=== PATIENT | female | born 1950 | race Caucasian/White ===

== ENCOUNTER 2016-09-26 16:28 | Inpatient (IN) | payer MEDICARE ==
[~2016-09-26] VITALS: Ht 172.7 cm; Wt 117.0 kg
[2016-09-26] VITALS (23 sets, daily range): BP systolic 129–195; BP diastolic 72–108; PULSE 67–85; RESP 19–44; TEMP 97.2–97.9; O2SAT 95–98; Ht 172.7 cm; Wt 117.0 kg
--- OUTSIDE RECORDS SUMMARY | 2016-09-26 16:39 | XMS REPORT ---
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.19 Active Assessment Atrial fibrillation 427.31 Active Problem Thrombophlebitis 451.9 Active Problem Hypertension, Unspecified 401.9 Active Problem Atrial fibrillation 427.31 Active Problem Anti-common cold drugs causing adverse effect in therapeutic use E945.6 Active Problem Anticoagulants, Encounter for long-term (current) use V58.61 Active Problem Hyperlipidemia, Other and unspecified 272.4 Active Problem Diabetes mellitus without mention of complication, type II or unspecified type, not stated as uncontrolled 250.00 Active Medications No Known Medications Procedures Procedure Coding System Code Date ECHOCARDIOGRAPHY, TRANSTHORACIC, REAL-TIME WITH IMAGE DOCUMENTATION (2D), INCLUDES M-MODE RECORDING, WHEN PERFORMED, COMPLETE, WITH CPT-4 68342 Jun Results No Known Results Summary Purpose ReelGenie[employer]Works Submission
--- OUTSIDE RECORDS SUMMARY | 2016-09-26 16:39 | XMS REPORT ---
Author Author Donny Deleon [facility] eClinicalWorks Address Unknown Phone Unavailable Care Team Providers Care Technical Agronomist Name Role Phone Donny Deleon Unavailable Allergies No Known Allergies Problems Problem Type Condition Code Onset Dates Condition Status Assessment Hyperlipidemia, Other and unspecified 272.4 Active Problem Other pulmonary embolism and infarction 415.19 Active Assessment Diabetes mellitus without mention of complication, type II or unspecified type, not stated as uncontrolled 250.00 Active Problem Thrombophlebitis 451.9 Active Problem Hypertension, Unspecified 401.9 Active Problem Atrial fibrillation 427.31 Active Problem Anti-common cold drugs causing adverse effect in therapeutic use E945.6 Active Problem Anticoagulants, Encounter for long-term (current) use V58.61 Active Problem Hyperlipidemia, Other and unspecified 272.4 Active Problem Diabetes mellitus without mention of complication, type II or unspecified type, not stated as uncontrolled 250.00 Active Medications Medication Code System Code Instructions Start Date End Date Status Dosage Atorvastatin Calcium [facility] [address]-52 20 MG Orally Once a day October 29, 2014 1 tablet Invokana [facility] [address]-64 100 MG Orally Once a day October 29, 2014 1 tablet Results No Known Results Summary Purpose eClinicalWorks Submission
--- OUTSIDE RECORDS SUMMARY | 2016-09-26 16:39 | XMS REPORT ---
Author Author [place] - Organization Unknown Address Unknown Phone Unavailable Allergies, Adverse Reactions, Alerts * tramadol causes Eczema (rash). * Dilaudid causes Adverse Reaction. * Penicillins causes SWELLING. * No Latex Allergy. * No IV Contrast Allergy. * No Known Food Allergies. Problems * Diabetes Mellitus* Status:Active. * Pulmonary Embolism* Status:Active. Procedures No relevant procedures performed. Medication It is the responsibility of the patient or patient advertising account representative to confirm the list of medications with either the patient's personal care provider or the patient's follow-up care provider to ensure the patient has an appropriate list of medications to take at home. Discharge medications* citalopram 20 mg Tablet, Ordered By: Wei Ford Directions: 1 tablet oral daily * metFORMIN 500 mg Tablet, Ordered By: Wei Ford Directions: 1 tablet oral twice a day * gabapentin 300 mg Capsule, Ordered By: Wei Ford Directions: 1 capsule oral daily at bedtime * warfarin 7 mg Tablet, Ordered By: Wei Ford Directions: 1 tablet oral daily Additional Instructions: pt has been holding for procedure scheduled 02/18/13 * losartan 50 mg Tablet, Ordered By: Wei Ford Directions: 1 tablet oral twice a day * OTC glucosamine 1500mg; 1 tab oral twice daily; last taken at home 02/14/13 am * OTC Fish Oil 1200mg; 1 cap oral daily; last taken at home 02/11/13 (holding for procedure scheduled 02/18/13 * Multivitamin 50+ tablet; 1 tab oral daily; last taken at home 02/14/13 am * albuterol sulfate (ProAir HFA) 90 mcg HFA Aerosol Inhaler, Ordered By: Wei Ford Directions: 2 puff by inhalation every four hours PRN shortness of breath * HYDROcodone-acetaminophen 7.5 mg-500 mg Tablet, Ordered By: Wei Ford Directions: 1 tablet oral every four hours PRN MODERATE PAIN Stopped medications* None Results LAB--BEDSIDE TESTING from 02/15/2013 5:07 PMGlucose NPT 144 mg/dL H (70-100 mg/dL ) LAB--BEDSIDE TESTING from 02/15/2013 9:20 PMGlucose NPT 208 mg/dL H (70-100 mg/dL ) LAB--BEDSIDE TESTING from 02/16/2013 5:39 AMGlucose NPT 162 mg/dL H (70-100 mg/dL ) LAB--BEDSIDE TESTING from 02/16/2013 11:02 AMGlucose NPT 227 mg/dL H (70-100 mg/ dL) LAB--BEDSIDE TESTING from 02/16/2013 4:10 PMGlucose NPT 146 mg/dL H (70-100 mg/dL ) LAB--BEDSIDE TESTING from 02/16/2013 9:37 PMGlucose NPT 166 mg/dL H (70-100 mg/dL ) LAB--BEDSIDE TESTING from 02/17/2013 5:20 AMGlucose NPT 128 mg/dL H (70-100 mg/dL ) LAB--BEDSIDE TESTING from 02/17/2013 10:09 AMGlucose NPT 151 mg/dL H (70-100 mg/ dL) LAB--BEDSIDE TESTING from 02/17/2013 2:40 PMGlucose NPT 159 mg/dL H (70-100 mg/dL ) LAB--BEDSIDE TESTING from 02/17/2013 9:35 PMGlucose NPT 176 mg/dL H (70-100 mg/dL ) LAB--BEDSIDE TESTING from 02/18/2013 5:19 AMGlucose NPT 140 mg/dL H (70-100 mg/dL ) LAB--BEDSIDE TESTING from 02/18/2013 10:02 AMGlucose NPT 162 mg/dL H (70-100 mg/ dL) LAB--BEDSIDE TESTING from 02/18/2013 3:25 PMGlucose NPT 215 mg/dL H (70-100 mg/dL ) LAB--BEDSIDE TESTING from 02/18/2013 5:04 PMGlucose NPT 164 mg/dL H (70-100 mg/dL ) LAB--BEDSIDE TESTING from 02/18/2013 8:48 PMGlucose NPT 193 mg/dL H (70-100 mg/dL ) LAB--BEDSIDE TESTING from 02/19/2013 6:00 AMGlucose NPT 148 mg/dL H (70-100 mg/dL ) LAB--COAG STUDIES from 02/15/2013 12:05 PMPTT 53.4 sec H (25.0-35.0 sec) LAB--COAG STUDIES from 02/15/2013 7:41 PMPTT 96.2 sec H (25.0-35.0 sec) LAB--COAG STUDIES from 02/16/2013 5:55 AMINR 1.3 H (0.9-1.2 ) PTT 171.1 sec HH (25.0-35.0 sec) LAB--COAG STUDIES from 02/16/2013 2:53 PMPTT 68.6 sec H (25.0-35.0 sec) LAB--COAG STUDIES from 02/17/2013 6:05 AMINR 1.6 H (0.9-1.2 ) PTT 139.6 sec H (25.0-35.0 sec) LAB--COAG STUDIES from 02/17/2013 3:05 PMINR 1.5 H (0.9-1.2 ) PTT 64.7 sec H (25.0-35.0 sec) LAB--COAG STUDIES from 02/18/2013 6:03 AMINR 1.8 H (0.9-1.2 ) PTT 76.9 sec H (25.0-35.0 sec) LAB--COAG STUDIES from 02/19/2013 6:00 AMINR 1.9 H (0.9-1.2 ) PTT 61.8 sec H (25.0-35.0 sec) LAB--FLUID TESTING from 02/18/2013 8:49 AMOccult Blood, Stool Colorectal Neoplasm Screen Negative (Negative ) LAB--FLUID TESTING from 02/18/2013 4:30 PMOccult Blood, Stool Colorectal Neoplasm Screen Negative (Negative ) LAB--HEMATOLOGY from 02/18/2013 6:03 AMHCT 34.6 % L (37.0-47.0 %) HGB 10.9 g/dl L (12.0-16.0 g/dl) MCH 28.1 pg (27.0-32.0 pg) MCHC 31.5 g/dL L (32.0-36.0 g/dL) MCV 89.2 fL (82.0-99.0 fL) MPV 9.2 fL L (9.4-12.4 fL) Platelet Count 217 K/uL (150-400 K/uL) RBC 3.88 M/uL L (4.00-5.20 M/uL) RDW 15.0 % H (11.5-14.5 %) WBC 6.3 K/uL (4.8-10.8 K/uL)
--- OUTSIDE RECORDS SUMMARY | 2016-09-26 16:40 | XMS REPORT ---
Author Author Donny Deleon [facility] eClinicalWorks Address Unknown Phone Unavailable Care Team Providers Care Drafter Construction Name Role Phone Donny Deleon Unavailable Allergies No Known Allergies Problems Problem Type Condition ICD-9 Code Onset Dates Condition Status Problem Other pulmonary embolism and infarction 415.19 Active Problem Thrombophlebitis 451.9 Active Problem Hypertension, [...] uncontrolled 250.00 Active Medications No Known Medications Results No Known Results Summary Purpose eClinicalWorks Submission
--- OUTSIDE RECORDS SUMMARY | 2016-09-26 16:40 | XMS REPORT ---
Author Author Donny Deleon [facility] eClinicalWorks Address Unknown Phone Unavailable Care Team Providers Care Head Scorer Name Role Phone Donny Deleon Unavailable Allergies No Known Allergies Problems Problem Type Condition ICD-9 Code Onset Dates Condition Status Problem Other pulmonary embolism and infarction 415.19 Active Assessment Anticoagulants, Encounter for long-term (current) use V58.61 Active Problem Thrombophlebitis 451.9 Active Problem Hypertension, [...]
--- OUTSIDE RECORDS SUMMARY | 2016-09-26 16:40 | XMS REPORT ---
Author Author Donny Deleon [facility] eClinicalWorks Address Unknown Phone Unavailable Care Team Providers Care Ladle Cleaner Name Role Phone Donny Deleon Unavailable Allergies [...] Instructions Start Date End Date Status Dosage Tramadol HCl [facility] [id number] 50MG Active TAKE ONE TABLET BY MOUTH EVERY 6 HOURS NEEDED Results No Known Results Summary Purpose eClinicalWorks Submission
--- OUTSIDE RECORDS SUMMARY | 2016-09-26 16:40 | XMS REPORT ---
Author Author Donny Deleon [facility] eClinicalWorks Address Unknown Phone Unavailable Care Team Providers Care Tag Meter Operator Name Role Phone Donny Deleon Unavailable Allergies No Known Allergies Problems Problem Type Condition Code Onset Dates Condition Status Problem Other [...]
--- OUTSIDE RECORDS SUMMARY | 2016-09-26 16:40 | XMS REPORT ---
Author Author Donny Deleon [facility] eClinicalWorks Address Unknown Phone Unavailable Care Team Providers Care Shop Firer/Fireman Name Role Phone Donny Deleon CP Unavailable Allergies, Adverse Reactions, Alerts Substance Reaction Event Type penicillin Info Not Available Drug Allergy Tramadol HCl Info Not Available Drug Allergy Dilaudid Info Not Available Drug Allergy Problems Problem Type Condition ICD-9 Code Onset Dates Condition Status Assessment Anticoagulants, Encounter for long-term (current) use V58.61 Active Problem Other pulmonary embolism and infarction 415.19 Active Assessment Diabetes mellitus without mention of complication, type II or unspecified type, not stated as uncontrolled 250.00 Active Assessment Serum calcium elevated 275.42 Active Problem Thrombophlebitis 451.9 Active Problem Hypertension, [...] Instructions Start Date End Date Status Dosage Metoprolol Succinate ER [facility] [address]-55 100 MG Orally Once a day May 26, 2014 Active as directed Coumadin [facility] [address]-01 5 MG Orally Once a day or as directed Aug 03, 2011 Active 1.5 tabs Citalopram Hydrobromide [facility] 14750362617 20MG Active TAKE ONE TABLET BY MOUTH EVERY DAY Proventil HFA [facility] [address]-72 CFC FREE 90 MCG/INH INHALATION q 4hrs December 21, 2009 Active 1 (one) PUFF AEROSOL WITH ADAPTER q 4hrs Metformin HCl [facility] [address]-96 500 MG Orally Twice a day Active take one tablet by mouth twice daily Gabapentin [facility] [address]-68 300MG Active TAKE ONE CAPSULE BY MOUTH EVERY DAY Losartan Potassium [facility] [address]-33 50 MG Orally Once a day May 20, 2013 Active 1 tablet Klor-Con [facility] [address]-62 8 MEQ Orally Once a day Active TAKE ONE BY MOUTH EVERY DAY Triamterene-HCTZ [facility] [address]-24 37.5-25 MG Orally Once a day Aug 10, 2011 Active 1 tablet in the morning Coumadin [facility] [address]-90 1 MG Orally ONE TIME EACH DAY Active TAKE ONE TABLET BY MOUTH EVERY DAY Colchicine [facility] [address]-01 0.6 MG Orally Once a day Active 1 tablet Tramadol HCl [facility] [address]-68 50 MG Orally every 6 hrs Jun 11, 2014 Active 1 tablet as needed Procedures Procedure Coding System Code Date OFFICE VISITEST PT CPT-4 61030 Jun 25, 2014 PROTIME CPT-4 05967 Jun 25, 2014 Vital Signs Date/Time: Jun 25, 2014 Blood Pressure Systolic 121 mm Hg Height 67.5 in Weight 295.2 lbs BMI 45.55 Index Oximetry 97 % Cardiac Monitoring Heart Rate 92 /min Blood Pressure Diastolic 80 mm Hg Results Name Result Date Reference Range Unit PROTIME Summary Purpose eClinicalWorks Submission
--- OUTSIDE RECORDS SUMMARY | 2016-09-26 16:40 | XMS REPORT ---
Author Author Donny Deleon [facility] eClinicalWorks Address Unknown Phone Unavailable Care Team Providers Care Cyber Policy And Strategy Planner Name Role Phone Donny Deleon Unavailable Allergies [...] Date End Date Status Dosage Tramadol HCl [facility] [id number] 50MG Orally every 6 hrs PRN 1 TABLET Results No Known Results Summary Purpose eClinicalWorks Submission
--- OUTSIDE RECORDS SUMMARY | 2016-09-26 16:40 | XMS REPORT | Continuity of Care Document ---
Author Author [facility] Organization [facility] Address Unknown Phone Unavailable Allergies Active Description Code Type Severity Reaction Onset Reported/Identified Relationship to Patient Clinical Status Yes Penicillins Penicillins Drug Allergy Unknown N/A 04/21/2009 Yes Penicillins Drug Allergy N/A SWELLING 12/11/2009 Yes Dilaudid Drug Allergy N/A Adverse Reaction 03/13/2010 Yes tramadol Drug Allergy N/A Eczema (rash) 07/07/2011 Yes No Known Food Allergies Food Allergy N/A N/A 08/07/2013 Yes Hydromorphone Hydromorphone Drug Allergy Severe VOMITING 05/22/2014 Yes tramadol tramadol Drug Allergy Severe HIVE 05/22/2014 Yes Penicillins Penicillins Drug Allergy Unknown UNKNOWN 05/22/2014 Medications Problems Date Dx Coded Attending Type Code Diagnosis Diagnosed By 02/15/2013 Wei Ford MD Final 250.00 DM2/NOS UNCOMP NSU 02/15/2013 Wei Ford MD Final 272.4 HYPERLIPIDEMIA NEC NOS 02/15/2013 Wei Ford MD Final 278.00 OBESITY NOS 02/15/2013 Wei Ford MD Final 285.9 ANEMIA NOS 02/15/2013 Wei Ford MD Final 311 DEPRESSIVE DISORDER NEC 02/15/2013 Wei Ford MD Final 401.9 HYPERTENSION NOS 02/15/2013 Wei Ford MD Final 415.19 PULMON EMBOL/INFARCT NEC 02/15/2013 Wei Ford MD Final V85.42 BMI 45.0-49.9 ADULT 05/02/2013 Kapil Owusu MD Final 250.00 DM2/NOS UNCOMP NSU 05/02/2013 Kapil Owusu MD Final 272.4 HYPERLIPIDEMIA NEC NOS 05/02/2013 Kapil Owusu MD Final 278.01 MORBID OBESITY 05/02/2013 Kapil Owusu MD Final 401.9 HYPERTENSION NOS 05/02/2013 Kapil Owusu MD Final 729.5 PAIN IN LIMB 05/02/2013 Kapil Owusu MD Final 785.1 PALPITATIONS 05/02/2013 Kapil Owusu MD Final 786.09 RESP ABNORMALITY NEC 05/02/2013 Kapil Owusu MD Admitting 786.50 CHEST PAIN NOS 05/02/2013 Kapil Owusu MD Final 786.52 PAINFUL RESPIRATION 05/02/2013 Kapil Owusu MD Final V12.51 HX YVETTE THROMBUS/EMBOLISM 05/02/2013 Kapil Owusu MD Final V12.55 HX PULMONARY EMBOLISM 05/02/2013 Kapil Owusu MD Final V85.42 BMI 45.0-49.9 ADULT 08/07/2013November Torres JOHNSON Final 250.00 DM2/NOS UNCOMP NSU 08/07/2013November Torres JOHNSON Final 272.4 HYPERLIPIDEMIA NEC NOS 08/07/2013November Torres JOHNSON Final 278.00 OBESITY NOS 08/07/2013November Torres JOHNSON Final 311 DEPRESSIVE DISORDER NEC 08/07/2013November Torres JOHNSON Final 401.9 HYPERTENSION NOS 08/07/2013November Torres JOHNSON Final 414.01 COR -KLETSEL DEHE WINT[place] VESSEL 08/07/2013November Torres JOHNSON Final 454.9 ASYMPT LEG VARICOSITY 08/07/2013November Torres JOHNSON Admitting 682.7 FOOT CELLULITIS 08/07/2013November Torres JOHNSON Final 729.5 PAIN IN LIMB 08/07/2013November Torres JOHNSON Final 729.81 LIMB SWELLING 08/07/2013November Torres JOHNSON Final V58.61 LONG-TERM ANTICOAG USE 08/07/2013November Torres JOHNSON Final V85.41 BMI 40.0-44.9 ADULT Procedures Results Test Result Range CHEM/HEM PROFILE-BEDSIDE - 05/22/14 11:59 POTASSIUM 4.1 mmol/L 3.5-5.3 METHOD Bedside ANION GAP 21 mmol/L 10-20 METHOD Bedside GLUCOSE 153 mg/dL 70-99 BLOOD UREA NITROGEN 17 mg/dL 7-20 CREATININE 1.1 mg/dL 0.6-1.0 HEMOGLOBIN 12.9 gm/dL 12.0-16.0 HEMATOCRIT 38.0 % 37.0-47.0 SODIUM 142 mmol/L 135-148 CHLORIDE 104 mmol/L 98-110 CARBON DIOXIDE 22 mmol/L 21-32 CALCIUM IONIZED 5.4 mg/dL 4.5-5.3 TROPONIN I BEDSIDE - 05/22/14 12:01 METHOD Bedside TROPONIN I < 0.04 ng/mL < 0.11 CBC W/DIFF - 05/22/14 12:05 EOSINOPHIL # 0.2 k/cumm 0.1-0.5 EOSINOPHIL % 2 % 2-4 GRANULOCYTE # 6.5 k/cumm 2.0-9.0 GRANULOCYTE % 63 % 50-75 LYMPHOCYTE # 2.8 k/cumm 1.0-4.0 LYMPHOCYTE % 27 % 20-30 MEAN CELL HGB 28.2 pg 27.0-33.0 MEAN CELL HGB CONCENTRATION 31.5 g/dL 32.0-37.0 MEAN CELL VOLUME 89.5 fl 80.0-100.0 MONOCYTE # 0.7 k/cumm 0.1-1.0 MONOCYTE % 7 % 4-6 RED BLOOD CELL 4.47 m/cumm 4.00-6.00 RED CELL DISTRIBUTION WIDTH 15.0 % 11.0- 15.6 WHITE BLOOD CELL 10.3 k/cumm 5.0-10.0 HEMOGLOBIN 12.6 gm/dL 12.0-16.0 HEMATOCRIT 40.0 % 37.0-47.0 PLATELET COUNT 286 k/cumm 150-400 LIPASE - 05/22/14 12:05 LIPASE 110 Units/L 73-393 PROTHROMBIN TIME WITH INR - 05/22/14 12:05 INTERNATIONAL NORMAL RATIO 1.2 0.9-1.1 PROTHROMBIN TIME 13.3 sec 9.3-12.2 URINALYSIS, ROUTINE - 05/22/14 12:40 UA LEUKOCYTE ESTERASE DIPSTICK NEGATIVE NEGATIVE UA NITRITE DIPSTICK NEGATIVE NEGATIVE UA PROTEIN DIPSTICK 3+ NEGATIVE UA GLUCOSE DIPSTICK NEGATIVE NEGATIVE UA KETONE DIPSTICK NEGATIVE NEGATIVE UA UROBILINOGEN DIPSTICK NORMAL NORMAL UA BILIRUBIN DIPSTICK NEGATIVE NEGATIVE UA BLOOD DIPSTICK NEGATIVE NEGATIVE UA COMMENT UA SPECIFIC GRAVITY 1.015 1.015-1.025 UR PH 5.0 5.0-7.0 UA MICROSCOPIC - 05/22/14 12:40 UA BACTERIA 2+ NEGATIVE UA EPITHELIAL CELLS 1+ epi/hpf 0 - 1+ UA HYALINE CAST 0-1 cast/lpf 0 - 1 UA MUCUS 1+ NEG TO 1+ UA RBC 0-3 rbc/hpf 0 - 3 UA VOLUME FOR EXAM 12.0 mL (12mL STD) UA WBC 0-1 wbc/hpf 0 - 5 Encounters ACCT No. Visit Date/Time Discharge Status Pt. Type Provider Facility Loc./Unit Complaint [id number] 08/07/2013 13:56:00 2013 19:03:00 DIS Outpatient Torres Muir MD [facility] F7 [id number] 05/02/2013 00:49:00 2012 11:57:00 DIS Outpatient Umer JOHNSON, Kapil [facility] F4SE [id number] 02/14/2013 18:47:00 2012 10:44:00 DIS Inpatient Logan JOHNSON, Wei [facility] F8SW
--- OUTSIDE RECORDS SUMMARY | 2016-09-26 16:40 | XMS REPORT ---
Author Author Yousif Pascal [facility] eClinicalWorks Address Unknown Phone Unavailable Care Team Providers Care Intensivist Name Role Phone Yousif Pascal CP Unavailable Allergies, Adverse Reactions, Alerts Substance Reaction Event Type penicillin Info Not Available Drug Allergy Tramadol HCl Info Not Available Drug Allergy Dilaudid Info Not Available Drug Allergy Problems Problem Type Condition ICD-9 Code Onset Dates Condition Status Problem Other pulmonary embolism and infarction 415.19 Active Assessment Arthralgia 719.40 Active Problem Thrombophlebitis 451.9 Active Problem Hypertension, [...] Date End Date Status Dosage Tramadol HCl [facility]NOTE 2] [id number] 50MG Orally every 6 hrs PRN 1 TABLET Proventil HFA [facility][NOTE 2] [address]-30 CFC FREE 90 MCG/INH INHALATION q 4hrs December 21, 2009 1 (one) PUFF AEROSOL WITH ADAPTER q 4hrs Colchicine [facility]NOTE 2] [address]-61 0.6 MG Orally Once a day 1 tablet Triamterene-HCTZ [facility][NOTE 2] [address]-66 37.5-25 MG Orally Once a day Aug 10, 2011 1 tablet in the morning Citalopram Hydrobromide [facility] [place][NOTE 2] 38745137465 20MG TAKE ONE TABLET BY MOUTH ONCE DAILY Klor-Con [facility][NOTE 2] [address]-86 8 MEQ Orally Once a day TAKE ONE BY MOUTH EVERY DAY PredniSONE [facility][NOTE 2] [address]-72 10 MG Orally qD October 09, 2014 6 po day 1, then 5 po day 2, then 4 po day 3, then 3 po day 4, then 2 po day 5, then 1 po day 6 Gabapentin [facility] [place]NOTE 2] [address]-15 300MG TAKE ONE CAPSULE BY MOUTH EVERY DAY Losartan Potassium [facility] [place][NOTE 2] [address]-99 50 MG Orally Once a day May 20, 2013 1 tablet Coumadin [facility]NOTE 2] [address]-47 5 MG Orally Once a day or as directed Aug 03, 2011 1.5 tabs Coumadin [facility]NOTE 2] [address]-98 1 MG Orally ONE TIME EACH DAY TAKE ONE TABLET BY MOUTH EVERY DAY Metformin HCl [facility] [place]NOTE 2] [address]-38 500 MG Orally Twice a day take one tablet by mouth twice daily Digoxin [facility] [place]NOTE 2] [address]-83 0.125 MG Orally Once a day 1 tablet Metoprolol Succinate ER [facility] [place]NOTE 2] [address]-19 100 MG Orally Once a day May 26, 2014 as directed Procedures Procedure Coding System Code Date OFFICE VISITEST PT CPT-4 13657 October 09, 2014 Vital Signs Date/Time: October 09, 2014 Blood Pressure Systolic 140 mm Hg Height 67.5 in Weight 282 lbs BMI 43.51 Index Blood Pressure Diastolic 78 mm Hg Results No Known Results Summary Purpose eClinicalWorks Submission
--- OUTSIDE RECORDS SUMMARY | 2016-09-26 16:40 | XMS REPORT | Referral Summary ---
Author Organization Unknown Address Unknown Phone Unavailable Care Team Providers Care Plant Changer Name Role Phone Donny Deleon Primary Care Physician [phone] Encounter VC Date(s): 10/31/14 - 10/31/14 [facility] [address] [place] [address] [phone] Discharge Diagnosis: Chronic atrial fibrillation Discharge Diagnosis: Nonspecific chest pain Discharge Diagnosis: Elevated INR Discharge Diagnosis: Anxiety Discharge Disposition: Home or Self Care Attending Physician: Jeffrey Mejia MD Admitting Physician: Jeffrey Mejia MD Vital Signs Most recent to 1 oldest [Reference Range]: Temperature Temporal 37.3 degC Artery [36.3-37.8 (10/31/14 3:21 PM) degC] Peripheral Pulse 83 bpm Rate [60-100 bpm] (10/31/14 3:21 PM) Heart Rate Monitored 108 bpm [60-100 bpm] *HI* (10/31/14 5:47 PM) Respiratory Rate 20 br/min [14-20 br/min] (10/31/14 5:47 PM) Blood Pressure 145/100 mmHg [90-140/60-90 mmHg] *HI* (10/31/14 5:47 PM) Mean Arterial 123 mmHg Pressure, Cuff (10/31/14 5:10 PM) Most recent to 1 oldest [Reference Range]: SpO2 98 % (10/31/14 5:47 PM) Problem List Condition Effective Dates Status Health Status Informant Atrial Active patient fibrillation(Confirm ed) Diabetes(Confirmed) Active patient Gout(Confirmed) Active patient Hypertension(Confirm Active patient ed) Tobacco Active patient user(Confirmed) Allergies, Adverse Reactions, Alerts Substance Reaction Severity Status penicillin SWELLING Active traMADol Eczema (rash) Active Medications Allergy Relief (Diphenhydramine HCl) mg, Oral, TID, 0 Refill(s) Start Date: 10/31/14 Status: Ordered citalopram Oral, Daily, 0 Refill(s) Start Date: 10/31/14 Status: Ordered digoxin Daily, 0 Refill(s) Start Date: 10/31/14 Status: Ordered digoxin Daily, 0 Refill(s) Start Date: 10/31/14 Status: Ordered Indocin TID, 0 Refill(s) Start Date: 10/31/14 Status: Ordered losartan Oral, Daily, 0 Refill(s) Start Date: 10/31/14 Status: Ordered metFORMIN Oral, 0 Refill(s) Start Date: 10/31/14 Status: Ordered traMADol Oral, 0 Refill(s) Start Date: 10/31/14 Status: Ordered warfarin Daily, 0 Refill(s) Start Date: 10/31/14 Status: Ordered Xopenex NEB, TID, 0 Refill(s) Start Date: 10/31/14 Status: Ordered Results Hematology Most recent to 1 oldest [Reference Range]: WBC [4.8-10.8 K/uL] 7.7 K/uL (10/31/14 3:32 PM) RBC [4.00-5.20 M/uL] 4.16 M/uL (10/31/14 3:32 PM) Hgb [12.0-16.0 12.4 gm/dL gm/dL] (10/31/14 3:32 PM) Hct [37.0-47.0 %] 37.5 % (10/31/14 3:32 PM) MCV [82.0-99.0 fL] 90.1 fL (10/31/14 3:32 PM) MCH [27.0-32.0 pg] 29.8 pg (10/31/14 3:32 PM) MCHC [32.0-36.0 33.1 gm/dL gm/dL] (10/31/14 3:32 PM) RDW [11.5-14.5 %] 16.8 % *HI* (10/31/14 3:32 PM) Platelet [150-400 220 K/uL K/uL] (10/31/14 3:32 PM) MPV [9.4-12.4 fL] 9.5 fL (10/31/14 3:32 PM) Coagulation Most recent to 1 oldest [Reference Range]: INR [0.9-1.2] 4.3 1 *HHI* (10/31/14 3:32 PM) 1Result Comment: Critical value called, and read-back verified. Called to Grady Brock RN. (FERM) 10/31/2014 16:50 Chemistry Most recent to 1 oldest [Reference Range]: Sodium Lvl [136-144 137 mEq/L mEq/L] (10/31/14 3:32 PM) Potassium Lvl 4.1 mEq/L [3.6-5.1 mEq/L] (10/31/14 3:32 PM) Chloride [99-109 106 mEq/L mEq/L] (10/31/14 3:32 PM) CO2 [22-32 mEq/L] 23 mEq/L (10/31/14 3:32 PM) AGAP [3-20] 8 (10/31/14 3:32 PM) BUN [4-20 mg/dL] 12 mg/dL (10/31/14 3:32 PM) Glucose Lvl [70-100 149 mg/dL mg/dL] *HI* (10/31/14 3:32 PM) Creatinine Lvl 0.98 mg/dL [0.44-1.03 mg/dL] (10/31/14 3:32 PM) eGFR [>60] 57 3 *ABN* (10/31/14 3:32 PM) Calcium Lvl 9.7 mg/dL [8.6-10.0 mg/dL] (10/31/14 3:32 PM) Albumin Lvl [3.5-4.8 3.1 gm/dL gm/dL] *LOW* (10/31/14 3:32 PM) Total Protein 6.4 gm/dL [6.1-7.9 gm/dL] (10/31/14 3:32 PM) Globulin [1.9-4.3 3.3 gm/dL gm/dL] (10/31/14 3:32 PM) ALT [14-54 unit/L] 17 unit/L (10/31/14 3:32 PM) AST [15-41 unit/L] 21 unit/L (10/31/14 3:32 PM) Alk Phos [26-104 57 unit/L unit/L] (10/31/14 3:32 PM) Bili Total [0.2-1.2 0.5 mg/dL 2 mg/dL] (10/31/14 3:32 PM) Troponin [<0.06 <0.05 ng/mL ng/mL] (10/31/14 3:32 PM) 2Result Comment: Naproxen, specifically the metabolite O-desmethylnaproxen, may cause spurious elevation in Total Bilirubin levels. 3Result Comment: Multiply eGFR results by 1.21 for race. Therapeutic Drug Monitoring Most recent to 1 oldest [Reference Range]: Digoxin Lvl 0.3 [0.8-2.0] *LOW* (10/31/14 3:32 PM) Immunizations Vaccine Date Refusal Reason influenza virus vaccine, live 05/02/13 Procedures No data available for this section Social History Social History Type Response Smoking Status Former smoker Assessment and Plan No data available for this section
--- OUTSIDE RECORDS SUMMARY | 2016-09-26 16:40 | XMS REPORT ---
Author Author Donny Deleon [facility] eClinicalWorks Address Unknown Phone Unavailable Care Team Providers Care Obstetrics/Gynecology Nurse Name Role Phone Donny Deleon Unavailable Allergies No Known Allergies Problems Problem Type Condition ICD-9 Code Onset Dates Condition Status Assessment Hypertension, Unspecified 401.9 Active Problem Other pulmonary embolism and infarction 415.19 Active Assessment Hand pain 729.5 Active Problem Thrombophlebitis 451.9 Active Problem Hypertension, [...] Instructions Start Date End Date Status Dosage Losartan Potassium [facility] [address]-38 50 MG Orally Once a day May 20, 2013 Active 1 tablet Colchicine [facility] [address]-15 0.6 MG Orally Once a day Active 1 tablet Metoprolol Succinate ER [facility] [address]-68 100 MG Orally Once a day May 26, 2014 Active as directed Results No Known Results Summary Purpose eClinicalWorks Submission
--- OUTSIDE RECORDS SUMMARY | 2016-09-26 16:40 | XMS REPORT ---
Author Author Donny Deleon [facility] eClinicalWorks Address Unknown Phone Unavailable Care Team Providers Care Pre Sales Network Engineer Name Role Phone Donny Deleon Unavailable Allergies [...]
--- OUTSIDE RECORDS SUMMARY | 2016-09-26 16:41 | XMS REPORT ---
Author Author Donny Deleon [facility] eClinicalWorks Address Unknown Phone Unavailable Care Team Providers Care Manager Of Selection And Assessment Name Role Phone Donny Deleon Unavailable Allergies No Known Allergies Problems Problem Type Condition Code Onset Dates Condition Status Assessment Diverticulitis of large intestine without perforation or abscess without bleeding K57.32 Active Problem Anticoagulants, Encounter for long-term (current) use V58.61 Active Problem Other pulmonary embolism and infarction 415.19 Active Problem Atrial fibrillation 427.31 Active Problem Thrombophlebitis 451.9 Active Problem Diverticulitis of large intestine with abscess without bleeding K57.20 Active Problem Diabetes mellitus without mention of complication, type II or unspecified type, not stated as uncontrolled 250.00 Active Problem Anti-common cold drugs causing adverse effect in therapeutic use E945.6 Active Problem Hypertension, Unspecified 401.9 Active Problem Hyperlipidemia, Other and unspecified 272.4 Active Medications No Known Medications Procedures Procedure Coding System Code Date CT ABDOMEN&PELVIS W/CONTRAST CPT-4 79175 November 04, 2015 Results No Known Results Summary Purpose eClinicalWorks Submission
--- OUTSIDE RECORDS SUMMARY | 2016-09-26 16:41 | XMS REPORT | Referral Summary ---
Author Author [facility] Organization [facility] Address Unknown Phone Unavailable Care Team Providers Care Charter Coordinator Name Role Phone Donny Deleon Primary Care Physician [phone] Encounter VC Date(s): 09/07/15 - 09/09/15 [facility] [address] [place] [address] Discharge Diagnosis: Colonic diverticular abscess Discharge Diagnosis: Diverticulitis Discharge Disposition: 01-Home or Self Care Attending Physician: Torres Muir MD Admitting Physician: Torres Muir MD Vital Signs Most recent to 1 oldest [Reference Range]: Temperature Axillary 36.4 degC [35.2-36.7 degC] (09/08/15 7:45 PM) Temperature Oral 36.5 degC [35.8-37.3 degC] (09/09/15 12:00 PM) Apical Heart Rate 66 bpm [60-100 bpm] (09/09/15 11:50 AM) Peripheral Pulse 80 bpm Rate [60-100 bpm] (09/09/15 12:00 PM) Respiratory Rate 18 br/min [14-20 br/min] (09/09/15 12:00 PM) Blood Pressure 154/83 mmHg [90-140/60-90 mmHg] *HI* (09/09/15 12:00 PM) SpO2 97 % (09/09/15 12:00 PM) Problem List Condition Effective Dates Status Health Status Informant Acute Resolved pain(Confirmed) At risk for unstable Active blood glucose level(Confirmed)1 Atrial Active patient fibrillation(Confirm ed) DVT (deep venous Active patient thrombosis)(Confirme d) Diabetes(Confirmed) Active patient Gout(Confirmed) Active patient Hypertension(Confirm Active patient ed) Knowledge Resolved deficit(Confirmed)2 Pulmonary Active patient embolism(Confirmed) Tissue perfusion Active alteration(Confirmed )3 Tobacco Active patient user(Confirmed) 1Problem added automatically by system based on initiation of At Risk for Unstable Blood Glucose Plan of Care 2Problem added automatically by system based on initiation of Knowledge Deficit Plan of Care 3Problem added automatically by system based on initiation of Tissue Perfusion Cerebral Plan of Care Allergies, Adverse Reactions, Alerts Substance Reaction Severity Status Dilaudid Vomiting Active penicillin SWELLING Active Medications Cipro 500 mg oral tablet 500 mg 1 tabs, Oral, q12hr, X 14 days, # 28 tabs, 0 Refill(s), Pharmacy: [facility], 1 tabs Oral q12hr,x14 days Start Date: 09/09/15 Stop Date: 09/23/15 Status: Ordered citalopram 20 mg, Oral, Daily, 0 Refill(s) Start Date: 10/31/14 Status: Ordered digoxin 125 mcg, Oral, Daily, 0 Refill(s) Start Date: 10/31/14 Status: Ordered Fish, Flax and Borage oil; 400 mg with [place] 3-6-9 Fish, Flax and Borage oil; 400 mg with [place] 3-6-9, See Instructions, 1 cap oral twice daily, 0 Refill(s) Start Date: 09/07/15 Status: Ordered Flagyl 500 mg oral tablet 500 mg 1 tabs, Oral, BID, X 14 days, # 28 tabs, 0 Refill(s), Pharmacy: [facility], 1 tabs Oral BID,x14 days Start Date: 09/09/15 Stop Date: 09/23/15 Status: Ordered gabapentin 600 mg, Oral, Bedtime (once a day), 0 Refill(s) Start Date: 09/07/15 Status: Ordered Indocin 25 mg, Oral, TID, 0 Refill(s) Start Date: 10/31/14 Status: Ordered metFORMIN 500 mg, Oral, BID, 0 Refill(s) Start Date: 10/31/14 Status: Ordered multivitamin 1 tabs, Oral, Daily, 0 Refill(s) Start Date: 11/01/14 Status: Ordered Toujeo SoloStar 300 units/mL subcutaneous solution 20 units, SubCutaneous, Bedtime (once a day), 0 Refill(s) Start Date: 09/07/15 Status: Ordered warfarin 5 mg oral tablet 1 tabs, Oral, Daily, 0 Refill(s) Start Date: 11/04/14 Status: Ordered Zofran 4 mg oral tablet 4 mg 1 tabs, Oral, q6hr, Nausea, X 5 days, # 30 tabs, 0 Refill(s), Pharmacy: [facility], 1 tabs Oral q6hr,x5 days,PRN:Nausea Start Date: 09/09/15 Stop Date: 09/14/15 Status: Ordered Results Hematology Most recent to 1 oldest [Reference Range]: WBC [4.8-10.8 8.8 10*3/uL 10*3/uL] (09/08/15 5:31 AM) RBC [4.00-5.20] 4.28 (09/08/15 5:31 AM) Hgb [12.0-16.0 12.0 gm/dL gm/dL] (09/08/15 5:31 AM) Hct [37.0-47.0 %] 37.5 % (09/08/15 5:31 AM) MCV [82.0-99.0 fL] 87.6 fL (09/08/15 5:31 AM) MCH [27.0-32.0 pg] 28.0 pg (09/08/15 5:31 AM) MCHC [32.0-36.0 32.0 gm/dL gm/dL] (09/08/15 5:31 AM) RDW [11.5-14.5 %] 16.0 % *HI* (09/08/15 5:31 AM) Platelet [150-400 338 10*3/uL 10*3/uL] (09/08/15 5:31 AM) MPV [9.4-12.4 fL] 8.8 fL *LOW* (09/08/15 5:31 AM) Immature 0.9 % Granulocytes (09/08/15 5:31 AM) [0.0-1.0 %] Neutrophils [51-75 54 % %] (09/08/15 5:31 AM) Lymphocytes [20-46 30 % %] (09/08/15 5:31 AM) Monocytes [4-11 %] 8 % (09/08/15 5:31 AM) Eosinophils [0-4 %] 7 % *HI* (09/08/15 5:31 AM) Basophils [0-2 %] 0 % (09/08/15 5:31 AM) Neutro Absolute 4.74 10*3 [1.90-7.00 10*3] (09/08/15 5:31 AM) Lymph Absolute 2.64 10*3 [0.80-3.30 10*3] (09/08/15 5:31 AM) Lucas Absolute 0.69 10*3 [0.30-1.00 10*3] (09/08/15 5:31 AM) Eos Absolute 0.64 10*3 [0.00-0.50 10*3] *HI* (09/08/15 5:31 AM) Baso Absolute 0.03 10*3 [0.00-0.20 10*3] (09/08/15 5:31 AM) Nucleated RBC 0.0 /100 WBC Automated [0 /100 (09/08/15 5:31 AM) WBC] Coagulation Most recent to 1 oldest [Reference Range]: INR [0.9-1.2] 2.3 *HI* (09/09/15 5:12 AM) Chemistry Most recent to 1 oldest [Reference Range]: Sodium Lvl [136-144 142 mEq/L mEq/L] (09/08/15 5:31 AM) Potassium Lvl 3.7 mEq/L [3.6-5.1 mEq/L] (09/08/15 5:31 AM) Chloride [99-109 105 mEq/L mEq/L] (09/08/15 5:31 AM) CO2 [22-32 mEq/L] 28 mEq/L (09/08/15 5:31 AM) AGAP [3-20] 9 (09/08/15 5:31 AM) BUN [4-20 mg/dL] 7 mg/dL (09/08/15 5:31 AM) Glucose Lvl [70-100 148 mg/dL mg/dL] *HI* (09/08/15 5:31 AM) Creatinine Lvl 0.82 mg/dL [0.44-1.03 mg/dL] (09/08/15 5:31 AM) eGFR [>60] >60 1 (09/08/15 5:31 AM) Calcium Lvl 9.7 mg/dL [8.6-10.0 mg/dL] (09/08/15 5:31 AM) Albumin Lvl [3.5-4.8 2.7 gm/dL gm/dL] *LOW* (09/07/15 6:34 PM) Total Protein 6.5 gm/dL [6.1-7.9 gm/dL] (09/07/15 6:34 PM) Globulin [1.9-4.3 3.8 gm/dL gm/dL] (09/07/15 6:34 PM) ALT [14-54 U/L] 19 U/L (09/07/15 6:34 PM) AST [15-41 U/L] 23 U/L (09/07/15 6:34 PM) Alk Phos [26-104 69 U/L U/L] (09/07/15 6:34 PM) Bili Total [0.2-1.2 0.4 mg/dL 2 mg/dL] (09/07/15 6:34 PM) Magnesium Lvl 1.5 mg/dL [1.8-2.5 mg/dL] *LOW* (09/08/15 5:31 AM) Phosphorus [2.4-4.7 3.5 mg/dL 3 mg/dL] (09/08/15 5:31 AM) Blood Glucose, 287 mg/dL Capillary [70-100 *HI* mg/dL] (09/09/15 9:51 AM) 1Result Comment: Multiply eGFR results by 1.21 for race. 2Result Comment: Naproxen, specifically the metabolite O-desmethylnaproxen, may cause spurious elevation in Total Bilirubin levels. 3Result Comment: High dosages of liposomal Amphotericin B (AmBisome) therapy or other drug preparations that use a liposomal envelope to facilitate drug delivery may cause falsely elevated results for phosphorus. Immunizations Vaccine Date Refusal Reason influenza virus vaccine, live 05/02/13 Procedures Procedure Date Related Diagnosis Body Site Carpal tunnel release Cholecystectomy Extraction of permanent tooth1 Surgery2 1for dentures 22 heart caths negative Social History Social History Type Response Smoking Status Former smoker Assessment and Plan No data available for this section
--- OUTSIDE RECORDS SUMMARY | 2016-09-26 16:41 | XMS REPORT ---
Author Author Donny Deleon [facility] eClinicalWorks Address Unknown Phone Unavailable Care Team Providers Care Junior Web Developer Name Role Phone Donny Deleon Unavailable Allergies [...]
--- OUTSIDE RECORDS SUMMARY | 2016-09-26 16:41 | XMS REPORT ---
Author Author Donny Deleon [facility] eClinicalWorks Address Unknown Phone Unavailable Care Team Providers Care Pizza Chef Name Role Phone Donny Deleon Unavailable Allergies No Known Allergies Problems Problem Type Condition Code Onset Dates Condition Status Problem intermediate current use of anticoagulant therapy Z79.01 Active Problem Other pulmonary embolism and infarction I26.99 Active Problem Paroxysmal atrial fibrillation I48.0 Active Problem Phlebitis and thrombophlebitis I80.9 Active Problem Diverticulitis of large intestine with abscess without bleeding K57.20 Active Problem Other and unspecified hyperlipidemia E78.5 Active Problem Type 2 diabetes mellitus without complications E11.9 Active Problem Anti-common cold drugs causing adverse effect in therapeutic use E945.6 Active Problem Essential hypertension I10 Active Medications Medication Code System Code Instructions Start Date End Date Status Dosage Shantel Carballo [facility] 7580-3379-53 300units/ml subcutaneous once daily Aug 20 units Results No Known Results Summary Purpose eClinicalWorks Submission
--- OUTSIDE RECORDS SUMMARY | 2016-09-26 16:41 | XMS REPORT ---
Author Author Donny Deleon [facility] eClinicalWorks Address Unknown Phone Unavailable Care Team Providers Care Health And Safety Manager Name Role Phone Donny Deleon CP Unavailable Allergies, Adverse Reactions, Alerts Substance Reaction Event Type penicillin Info Not Available Drug Allergy Tramadol HCl Info Not Available Drug Allergy Dilaudid Info Not Available Drug Allergy Problems Problem Type Condition ICD-9 Code Onset Dates Condition Status Assessment Atrial fibrillation 427.31 Active Problem Other pulmonary embolism and infarction 415.19 Active Assessment Chest wall pain 786.52 Active Problem Thrombophlebitis 451.9 Active Problem Hypertension, Unspecified 401.9 Active Problem Atrial fibrillation 427.31 Active Problem Anti-common cold drugs causing adverse effect in therapeutic use E945.6 Active Problem Anticoagulants, Encounter for long-term (current) use V58.61 Active Problem Hyperlipidemia, Other and unspecified 272.4 Active Problem Diabetes mellitus without mention of complication, type II or unspecified type, not stated as uncontrolled 250.00 Active Assessment Chest pain 786.50 Active Assessment Myalgia and myositis 729.1 Active Assessment Depression 311 Active Assessment Fatigue 780.79 Active Medications Medication Code System Code Instructions Start Date End Date Status Dosage Colchicine [facility] [address]-24 0.6 MG Orally Once a day Active 1 tablet Triamterene-HCTZ [facility] [address]-93 37.5-25 MG Orally Once a day Aug 10, 2011 Active 1 tablet in the morning Coumadin [facility] [address]-51 5 MG Orally Once a day or as directed Aug 03, 2011 Active 1.5 tabs Proventil HFA [facility] [address]-69 CFC FREE 90 MCG/INH INHALATION q 4hrs December 21, 2009 Active 1 (one) PUFF AEROSOL WITH ADAPTER q 4hrs Metformin HCl [facility] [address]-26 500 MG Orally Twice a day Active take one tablet by mouth twice daily Klor-Con [facility] [address]-50 8 MEQ Orally Once a day Active TAKE ONE BY MOUTH EVERY DAY Coumadin [facility] [address]-99 1 MG Orally ONE TIME EACH DAY Active TAKE ONE TABLET BY MOUTH EVERY DAY Metoprolol Succinate ER [facility] [address]-59 100 MG Orally Once a day May 26, 2014 Active as directed Digoxin [facility] [address]-29 0.125 MG Orally Once a day Active 1 tablet Losartan Potassium [facility] [address]-06 50 MG Orally Once a day May 20, 2013 Active 1 tablet Citalopram Hydrobromide [facility] 15390402509 20MG Active TAKE ONE TABLET BY MOUTH EVERY DAY Tramadol HCl [facility] [address]-45 50 MG Orally every 6 hrs Jun 11, 2014 Active 1 tablet as needed Gabapentin [facility] [address]-76 300MG Active TAKE ONE CAPSULE BY MOUTH EVERY DAY Procedures Procedure Coding System Code Date TSH CPT-4 41677 Jun 30, 2014 T4 CPT-4 74543 Jun 30, 2014 CHEST XRAY 2 VIEW CPT-4 91844 Jun 30, 2014 OFFICE VISITEST PT CPT-4 06043 Jun 30, 2014 CREATININE CPT-4 02574 Jun 30, 2014 CBC CPT-4 69877 Jun 30, 2014 T3 UPTAKE CPT-4 20427 Jun 30, 2014 C REACTIVE PROTEIN CPT-4 39476 Jun 30, 2014 SED RATE AUTOMA CPT-4 90326 Jun 30, 2014 Vital Signs Date/Time: Jun 30, 2014 Blood Pressure Systolic 127 mm Hg Height 67.5 in Weight 289.4 lbs Oximetry 97 % Cardiac Monitoring Heart Rate 106 /min Temperature 97.5 F Blood Pressure Diastolic 85 mm Hg BMI 44.65 Index Results Name Result Date Reference Range Unit CBC Summary Purpose eClinicalWorks Submission
--- OUTSIDE RECORDS SUMMARY | 2016-09-26 16:41 | XMS REPORT ---
Author Author Donny Deleon [facility] eClinicalWorks Address Unknown Phone Unavailable Care Team Providers Care Cloth Doffer Name Role Phone Donny Deleon Unavailable Allergies [...]
--- OUTSIDE RECORDS SUMMARY | 2016-09-26 16:41 | XMS REPORT ---
Author Author Jeffrey Garcia [facility] eClinicalWorks Address Unknown Phone Unavailable Care Team Providers Care Metal Base Blocker Name Role Phone Jeffrey Garcia CP Unavailable Allergies, Adverse Reactions, Alerts Substance Reaction Event Type penicillin Info Not Available Drug Allergy Tramadol HCl Info Not Available Drug Allergy Dilaudid Info Not Available Drug Allergy Problems Problem Type Condition Code Onset Dates Condition Status Assessment Type 2 diabetes mellitus without complication E11.9 Active Problem Other pulmonary embolism and infarction 415.19 Active Assessment Polyarthralgia M25.50 Active Assessment FDC current use of anticoagulant Z79.01 Active Assessment Other acute pulmonary embolism without acute cor pulmonale I26.99 Active Problem Thrombophlebitis 451.9 Active Problem Hypertension, [...] Date End Date Status Dosage Atorvastatin Calcium [facility] [address]-20 20MG as directed Diltiazem HCl CR [facility] [address]-34 180 MG/24HR Orally Once a day 1 capsule on an empty stomach in the morning Tramadol HCl [facility] 08122877867 50MG Orally PRN F 1 TABLET Digoxin [facility] [address]-92 0.125 MG Orally Once a day 1 tablet Proventil HFA [facility] [address]-29 CFC FREE 90 MCG/INH INHALATION q 4hrs December 21, 2009 1 (one) PUFF AEROSOL WITH ADAPTER q 4hrs Indomethacin [facility] 26827233853 25 MG Orally tid 1 capsule with food PredniSONE [facility] [address]-82 10 MG Orally Once a day Aug 06, 2015 3 po qd for 4 days, then 2 po qd x 4 days, then 1 po qd for 4 days, then off Metformin HCl [facility] [address]-08 500MG TAKE ONE TABLET BY MOUTH TWICE DAILY Citalopram Hydrobromide [facility] 52721192738 20MG TAKE ONE TABLET BY MOUTH ONCE DAILY Invokana [facility] [address]-27 100 MG Orally Once a day October 29, 2014 1 tablet WARFARIN SODIUM [facility] [address]-48 5 MG PO EVERY DAY- TAKE ALONG WITH A 4 MG PILL FOR A TOTAL OF 9MG DAILY 1 TABLET Tylenol/Codeine #3 [facility] [address]-19 300-30 MG Orally every 6 hrs prn pain Aug 06, 2015 1 tablet Procedures Procedure Coding System Code Date COMP PROFILE CPT-4 75941 Aug 06, 2015 HgB A1C CPT-4 48441 Aug 06, 2015 CBC CPT-4 11461 Aug 06, 2015 RA FACTOR CPT-4 72347 Aug 06, 2015 SED RATE AUTOMA CPT-4 92279 Aug 06, 2015 OFFICE VISITEST PT CPT-4 77044 Aug 06, 2015 PROTIME CPT-4 47924 Aug 06, 2015 Vital Signs Date/Time: Aug 06, 2015 Blood Pressure Systolic 158 mm Hg Height 67.5 in Weight 278.4 lbs BMI 42.96 Index Blood Pressure Diastolic 92 mm Hg Results Name Result Date Reference Range Unit Abnormality Flag PROTIME ----PT 16.8 [id number] 11.6-13.2 SEC H ----INR 1.9 [id number] 2.0-3.5 L Summary Purpose eClinicalWorks Submission
--- OUTSIDE RECORDS SUMMARY | 2016-09-26 16:41 | XMS REPORT ---
Author Author Donny Deleon [facility] eClinicalWorks Address Unknown Phone Unavailable Care Team Providers Care Fire Prevention Chief Name Role Phone Donny Deleon Unavailable Allergies No Known Allergies Problems Problem Type Condition ICD-9 Code Onset Dates Condition Status Problem Other pulmonary embolism and infarction 415.19 Active Assessment Arm swelling 729.81 Active Problem Thrombophlebitis 451.9 Active Problem Hypertension, [...] Medications Procedures Procedure Coding System Code Date VENOUS UNILATERAL CPT-4 70223 May 26, 2014 Results Name Result Date Reference Range Unit Ultrasound : Venous, Left Arm Summary Purpose eClinicalWorks Submission
--- OUTSIDE RECORDS SUMMARY | 2016-09-26 16:41 | XMS REPORT ---
Author Author [facility], [facility] - Organization Unknown Address Unknown Phone Unavailable Allergies, Adverse Reactions, Alerts * tramadol causes Eczema (rash). * Dilaudid causes Adverse Reaction. * Penicillins causes SWELLING. * No Latex Allergy. * No IV Contrast Allergy. * No Known Food Allergies. Problems * Chest Pain* Status:Active. * Diabetes Mellitus* Status:Active. * Dyspnea* Status:Active. * Pulmonary Embolism* Status:Resolved. Procedures No relevant procedures performed. Medication It is the responsibility of the patient or patient leather goods sales representative to confirm the list of medications with either the patient's personal care provider or the patient's follow-up care provider to ensure the patient has an appropriate list of medications to take at home. Discharge medications* albuterol sulfate (ProAir HFA) 90 mcg HFA Aerosol Inhaler , Ordered By: Kapil Owusu Directions: 2 puff by inhalation every four hours PRN shortness of breath * citalopram 20 mg Tablet, Ordered By: Kapil Owusu Directions: 1 tablet oral daily * gabapentin 300 mg Capsule, Ordered By: Kapil Owusu Directions: 1 capsule oral daily at bedtime * losartan 50 mg Tablet, Ordered By: Kapil Owusu Directions: 1 tablet oral twice a day * metFORMIN 500 mg Tablet, Ordered By: Kapil Owusu Directions: 1 tablet oral twice a day * Multivitamin 50+ tablet; 1 tab oral daily; last taken at home 05/01/2013 * OTC Fish Oil 1200mg; 1 cap oral daily; last taken at home 05/01/2013 * OTC glucosamine 1500mg; 1 tab oral twice daily; last taken at home 05/01/2013 * warfarin 7.5 mg Tablet, Ordered By: Kapil Owusu Directions: 1 tablet oral daily Additional Instructions: 5mg+ 1mg+ 6mg daily * HYDROcodone-acetaminophen (Lortab) 5 mg-500 mg Tablet, Ordered By: Kapil Owusu Directions: 1 tablet oral every four hours PRN pain Stopped medications* None Results LAB--BEDSIDE TESTING from 05/02/2013 3:59 AMCreatinine Venous NPT 1.0 mg/dL (0.4 -1.0 mg/dL) LAB--BEDSIDE TESTING from 05/02/2013 3:34 PMGlucose NPT 131 mg/dL H (70-100 mg/ dL) LAB--BEDSIDE TESTING from 05/02/2013 9:35 PMGlucose NPT 171 mg/dL H (70-100 mg/ dL) LAB--BEDSIDE TESTING from 05/03/2013 5:45 AMGlucose NPT 121 mg/dL H (70-100 mg/ dL) LAB--BEDSIDE TESTING from 05/03/2013 2:20 PMGlucose NPT 132 mg/dL H (70-100 mg/ dL) LAB--BEDSIDE TESTING from 05/03/2013 9:16 PMGlucose NPT 125 mg/dL H (70-100 mg/ dL) LAB--BEDSIDE TESTING from 05/04/2013 5:27 AMGlucose NPT 131 mg/dL H (70-100 mg/ dL) LAB--BEDSIDE TESTING from 05/04/2013 8:38 AMGlucose NPT 158 mg/dL H (70-100 mg/ dL) LAB--CHEMISTRY from 05/02/2013 3:28 AMAnion Gap 9 (3-20 ) Albumin 3.8 g/dL (3.5-4.8 g/dL) Alkaline Phosphatase 58 U/L (26-104 U/L) ALT (SGPT) 22 U/L (14-54 U/L) AST (SGOT) 21 U/L (15-41 U/L) Bilirubin Total 0.1 mg/dL L (0.2-1.2 mg/dL) BUN 16 mg/dL (4-20 mg/dL) Calcium 10.1 mg/dL H (8.6-10.0 mg/dL) Chloride 104 mEq/L (99-109 mEq/L) CO2 24 mEq/L (22-32 mEq/L) Creatinine 1.00 mg/dL (0.44-1.03 mg/dL) eGFR 56 A (>60- ) Globulin 3.5 g/dL (1.9-4.3 g/dL) Glucose 120 mg/dL H (70-100 mg/dL) Potassium 3.8 mEq/L (3.6-5.1 mEq/L) Sodium 137 mEq/L (136-144 mEq/L) Protein 7.3 g/dL (6.1-7.9 g/dL) Troponin <0.05 ng/mL (-<0.06 ng/mL) Estimated Average Glucose 165.7 mg/dL Hemoglobin A1C 7.4 % H (4.1-5.6 %) Thyroxine 6.3 ug/dL (4.8-11.7 ug/dL) LAB--CHEMISTRY from 05/02/2013 11:07 AMAnion Gap 9 (3-20 ) Albumin 3.2 g/dL L (3.5-4.8 g/dL) BUN 13 mg/dL (4-20 mg/dL) Calcium 9.9 mg/dL (8.6-10.0 mg/dL) Chloride 106 mEq/L (99-109 mEq/L) CO2 23 mEq/L (22-32 mEq/L) Creatinine 1.01 mg/dL (0.44-1.03 mg/dL) eGFR 55 A (>60- ) Glucose 148 mg/dL H (70-100 mg/dL) Potassium 4.2 mEq/L (3.6-5.1 mEq/L) Sodium 138 mEq/L (136-144 mEq/L) Phosphorus 3.1 mg/dL (2.4-4.7 mg/dL) Troponin <0.05 ng/mL (-<0.06 ng/mL) TSH 2.39 uIU/mL (0.35-5.50 uIU/mL) C-Reactive Protein (CRP) 3.0 mg/dL H (0.0-0.9 mg/dL) LAB--CHEMISTRY from 05/02/2013 7:11 PMTroponin <0.05 ng/mL (-<0.06 ng/mL) LAB--CHEMISTRY from 05/03/2013 5:45 AMAnion Gap 7 (3-20 ) BUN 17 mg/dL (4-20 mg/dL) Calcium 9.9 mg/dL (8.6-10.0 mg/dL) Chloride 105 mEq/L (99-109 mEq/L) CO2 26 mEq/L (22-32 mEq/L) Creatinine 1.04 mg/dL H (0.44-1.03 mg/dL) eGFR 53 A (>60- ) Glucose 130 mg/dL H (70-100 mg/dL) Potassium 4.1 mEq/L (3.6-5.1 mEq/L) Sodium 138 mEq/L (136-144 mEq/L) Cholesterol 181 mg/dL (0-200 mg/dL) Cardiac Risk 5.5 H (0.0-5.0 ) HDL Cholesterol 33 mg/dL A (>40- mg/dL) LDL Cholesterol 97 mg/dL (0-100 mg/dL) Triglycerides 254 mg/dL H (0-150 mg/dL) VLDL Cholesterol 51 mg/dL H (0-30 mg/dL) LAB--COAG STUDIES from 05/02/2013 3:28 AMINR 1.4 H (0.9-1.2 ) PTT 34.1 sec (25.0-35.0 sec) LAB--COAG STUDIES from 05/03/2013 5:45 AMINR 1.8 H (0.9-1.2 ) LAB--COAG STUDIES from 05/04/2013 6:05 AMINR 2.2 H (0.9-1.2 ) LAB--HEMATOLOGY from 05/02/2013 3:28 AMAbsolute Basophils 0.03 THOUS (0.00-0.20 THOUS) Absolute Eosinophils 0.36 THOUS (0.00-0.50 THOUS) Absolute Lymphocytes 3.09 THOUS (0.80-3.30 THOUS) Absolute Monocytes 1.16 THOUS H (0.30-1.00 THOUS) Absolute Neutrophils 10.10 THOUS H (1.90-7.00 THOUS) HCT 38.7 % (37.0-47.0 %) HGB 12.9 g/dl (12.0-16.0 g/dl) MCH 29.7 pg (27.0-32.0 pg) MCHC 33.3 g/dL (32.0-36.0 g/dL) MCV 89.0 fL (82.0-99.0 fL) MPV 9.4 fL (9.4-12.4 fL) Platelet Count 272 K/uL (150-400 K/uL) RBC 4.35 M/uL (4.00-5.20 M/uL) RDW 14.8 % H (11.5-14.5 %) WBC 14.8 K/uL H (4.8-10.8 K/uL) Basophils 0 % (0-2 %) Eosinophils 2 % (0-4 %) Immature Granulocytes 0.3 % (0.0-1.0 %) Lymphocytes 21 % (20-46 %) Monocytes 8 % (4-11 %) Nucleated RBC Automated 0.0 /100 WBC (0 /100 WBC) Neutrophils 68 % (51-75 %) Sedimentation Rate 32 mm/hr H (0-23 mm/hr) LAB--HEMATOLOGY from 05/03/2013 5:45 AMHCT 37.0 % (37.0-47.0 %) HGB 11.9 g/dl L (12.0-16.0 g/dl) MCH 29.0 pg (27.0-32.0 pg) MCHC 32.2 g/dL (32.0-36.0 g/dL) MCV 90.2 fL (82.0-99.0 fL) MPV 9.5 fL (9.4-12.4 fL) Platelet Count 223 K/uL (150-400 K/uL) RBC 4.10 M/uL (4.00-5.20 M/uL) RDW 14.8 % H (11.5-14.5 %) WBC 6.9 K/uL (4.8-10.8 K/uL) LAB--IMMUNOLOGY from 05/02/2013 7:11 PMANA Screen Negative
--- OUTSIDE RECORDS SUMMARY | 2016-09-26 16:41 | XMS REPORT ---
Author Author Donny Deleon [facility] eClinicalWorks Address Unknown Phone Unavailable Care Team Providers Care Tool And Die Designer Name Role Phone Donny Deleon Unavailable Allergies No Known Allergies Problems Problem Type Condition Code Onset Dates Condition Status Problem Anticoagulants, Encounter for long-term (current) use [...] Hyperlipidemia, Other and unspecified 272.4 Active Medications Medication Code System Code Instructions Start Date End Date Status Dosage WARFARIN SODIUM NDC 0 5 mg PO daily as directed 1 TABLET Results No Known Results Summary Purpose eClinicalWorks Submission
--- OUTSIDE RECORDS SUMMARY | 2016-09-26 16:41 | XMS REPORT ---
Author Author Donny Deleon [facility] eClinicalWorks Address Unknown Phone Unavailable Care Team Providers Care Fabrication And Assembly Supervisor Name Role Phone Donny Deleon Unavailable Allergies [...] Date End Date Status Dosage Tramadol HCl [facility] [id number] 50MG Orally every 6 hrs PRN 1 TABLET Results No Known Results Summary Purpose eClinicalWorks Submission
--- OUTSIDE RECORDS SUMMARY | 2016-09-26 16:41 | XMS REPORT ---
Author Author Donny Deleon [facility] eClinicalWorks Address Unknown Phone Unavailable Care Team Providers Care Yard Worker Name Role Phone Donny Deleon Unavailable Allergies [...] unspecified 272.4 Active Medications No Known Medications Results No Known Results Summary Purpose H-art (WPP)inicalIdea Device Submission
--- OUTSIDE RECORDS SUMMARY | 2016-09-26 16:41 | XMS REPORT ---
Author Author Donny Deleon [facility] eClinicalWorks Address Unknown Phone Unavailable Care Team Providers Care Tobacco Acreage Measurer Name Role Phone Donny Deleon Unavailable Allergies [...] Date End Date Status Dosage Tramadol HCl [facility] [id number] 50MG Orally every 6 hrs PRN 1 TABLET Results No Known Results Summary Purpose eClinicalWorks Submission
--- OUTSIDE RECORDS SUMMARY | 2016-09-26 16:41 | XMS REPORT ---
Author Author Donny Deleon [facility] eClinicalWorks Address Unknown Phone Unavailable Care Team Providers Care Security Public Safety Officer Name Role Phone Donny Deleon Unavailable Allergies, Adverse Reactions, Alerts Substance Reaction Event Type penicillin Info Not Available Drug Allergy Tramadol HCl Info Not Available Drug Allergy Dilaudid Info Not Available Drug Allergy Problems Problem Type Condition ICD-9 Code Onset Dates Condition Status Assessment Diabetes mellitus without mention of complication, type II or unspecified type, not stated as uncontrolled 250.00 Active Problem Other pulmonary embolism and infarction 415.19 Active Assessment Hypertension, Unspecified 401.9 Active Problem Thrombophlebitis 451.9 Active Problem Hypertension, Unspecified 401.9 Active Problem Atrial fibrillation 427.31 Active Problem Anti-common cold drugs causing adverse effect in therapeutic use E945.6 Active Problem Anticoagulants, Encounter for long-term (current) use V58.61 Active Problem Hyperlipidemia, Other and unspecified 272.4 Active Problem Diabetes mellitus without mention of complication, type II or unspecified type, not stated as uncontrolled 250.00 Active Assessment Gout 274.9 Active Assessment Cellulitis 682.9 Active Assessment Atrial fibrillation 427.31 Active Medications Medication Code System Code Instructions Start Date End Date Status Dosage Gabapentin [facility] [address]-73 300MG Active TAKE ONE CAPSULE BY MOUTH EVERY DAY Coumadin [facility] [address]-28 5 MG Orally Once a day or as directed Aug 03, 2011 Active 1.5 tabs Tramadol HCl [facility] [address]-47 50 MG Orally every 6 hrs Jun 11, 2014 Active 1 tablet as needed Proventil HFA [facility] [address]-40 CFC FREE 90 MCG/INH INHALATION q 4hrs December 21, 2009 Active 1 (one) PUFF AEROSOL WITH ADAPTER q 4hrs Colchicine [facility] [address]-07 0.6 MG Orally Once a day Active 1 tablet Citalopram Hydrobromide [facility] 62417086363 20MG Active TAKE ONE TABLET BY MOUTH EVERY DAY Losartan Potassium [facility] [address]-90 50 MG Orally Once a day May 20, 2013 Active 1 tablet Coumadin [facility] [address]-15 1 MG Orally ONE TIME EACH DAY Active TAKE ONE TABLET BY MOUTH EVERY DAY Klor-Con [facility] [address]-76 8 MEQ Orally Once a day Active TAKE ONE BY MOUTH EVERY DAY Triamterene-HCTZ [facility] [address]-05 37.5-25 MG Orally Once a day Aug 10, 2011 Active 1 tablet in the morning Metformin HCl [facility] [address]-83 500 MG Orally Twice a day Active take one tablet by mouth twice daily Metoprolol Succinate ER [facility] [address]-94 100 MG Orally Once a day May 26, 2014 Active as directed Procedures Procedure Coding System Code Date HgB A1C CPT-4 96099 Jun 11, 2014 MICROALBUMIN URINE CPT-4 27687 Jun 11, 2014 OFFICE VISITEST PT CPT-4 39815 Jun 11, 2014 COMP PROFILE CPT-4 27334 Jun 11, 2014 CREATININE; OTHER SOURCE CPT-4 83193 Jun 11, 2014 PROTIME CPT-4 62205 Jun 11, 2014 Vital Signs Date/Time: Jun 11, 2014 Blood Pressure Systolic 138 mm Hg Height 67.5 in Weight 292.6 lbs BMI 45.15 Index Blood Pressure Diastolic 79 mm Hg Results Name Result Date Reference Range Unit PROTIME Summary Purpose eClinicalWorks Submission
--- OUTSIDE RECORDS SUMMARY | 2016-09-26 16:42 | XMS REPORT ---
Author Author Donny Deleon [facility] eClinicalWorks Address Unknown Phone Unavailable Care Team Providers Care Dedicated Owner Operator Name Role Phone Donny Deleon Unavailable [...] HCl [facility] 39809059075 50MG Orally every 6 hrs PRN 1 TABLET Results No Known Results Summary Purpose eClinicalWorks Submission
--- OUTSIDE RECORDS SUMMARY | 2016-09-26 16:42 | XMS REPORT ---
Author Author Donny Deleon [facility] eClinicalWorks Address Unknown Phone Unavailable Care Team Providers Care Channeling Machine Operator Name Role Phone Donny Deleon CP Unavailable Allergies, Adverse Reactions, Alerts Substance Reaction Event Type penicillin Info Not Available Drug Allergy Tramadol HCl Info Not Available Drug Allergy Dilaudid Info Not Available Drug Allergy Problems Problem Type Condition Code Onset Dates Condition Status Assessment Gout 274.9 Active Problem Other pulmonary embolism and infarction [...] Date End Date Status Dosage Tramadol HCl [facility] 86234229068 50MG Orally every 6 hrs PRN 1 TABLET Digoxin [facility] [address]-99 0.125 MG Orally Once a day 1 tablet Klor-Con [facility] [address]-33 8 MEQ Orally Once a day TAKE ONE BY MOUTH EVERY DAY Metoprolol Succinate ER [facility] [address]-59 100 MG Orally Once a day May 26, 2014 as directed Coumadin [facility] [address]-34 1 MG Orally ONE TIME EACH DAY TAKE ONE TABLET BY MOUTH EVERY DAY PredniSONE [facility] [address]-04 10 MG Orally qD October 09, 2014 6 po day 1, then 5 po day 2, then 4 po day 3, then 3 po day 4, then 2 po day 5, then 1 po day 6 Indomethacin [facility] [address]-01 25 MG Orally tid 1 capsule with food Proventil HFA [facility] [address]-89 CFC FREE 90 MCG/INH INHALATION q 4hrs December 21, 2009 1 (one) PUFF AEROSOL WITH ADAPTER q 4hrs Colchicine [facility] [address]-20 0.6 MG Orally Once a day 1 tablet Gabapentin [facility] [address]-93 300MG TAKE ONE CAPSULE BY MOUTH EVERY DAY Losartan Potassium [facility] [address]-42 50 MG Orally Once a day May 20, 2013 1 tablet Triamterene-HCTZ [facility] [address]-53 37.5-25 MG Orally Once a day Aug 10, 2011 1 tablet in the morning Citalopram Hydrobromide [facility] 92398237446 20MG TAKE ONE TABLET BY MOUTH ONCE DAILY Metformin HCl [facility] [address]-00 500 MG Orally Twice a day take one tablet by mouth twice daily Coumadin [facility] [address]-63 5 MG Orally Once a day or as directed Aug 03, 2011 1.5 tabs Procedures Procedure Coding System Code Date OFFICE VISITEST PT CPT-4 11003 October 14, 2014 Vital Signs Date/Time: October 14, 2014 Blood Pressure Systolic 160 mm Hg Height 67.5 in Weight 282.6 lbs BMI 43.60 Index Blood Pressure Diastolic 88 mm Hg Results No Known Results Summary Purpose eClinicalWorks Submission
--- OUTSIDE RECORDS SUMMARY | 2016-09-26 16:42 | XMS REPORT ---
Author Author Donny Deleon [facility] eClinicalWorks Address Unknown Phone Unavailable Care Team Providers Care Script Girl Name Role Phone Donny Deleon Unavailable Allergies [...] Status Dosage Tramadol HCl [facility] 37009783512 50MG Orally every 6 hrs PRN 1 TABLET Results No Known Results Summary Purpose eClinicalWorks Submission
--- OUTSIDE RECORDS SUMMARY | 2016-09-26 16:42 | XMS REPORT ---
Author Author Donny Deleon [facility] eClinicalWorks Address Unknown Phone Unavailable Care Team Providers Care Vp Training Name Role Phone Donny Deleon Unavailable Allergies No Known Allergies Problems Problem Type Condition ICD-9 Code Onset Dates Condition Status Assessment Thrombophlebitis 451.9 Active Assessment Myalgia and myositis 729.1 Active Assessment Chest pain 786.50 Active Assessment Gout 274.9 Active Assessment Chest wall pain 786.52 Active Problem Other pulmonary embolism and infarction 415.19 Active Assessment Hypercalcemia 275.42 Active Problem Thrombophlebitis 451.9 Active Problem Hypertension, Unspecified 401.9 Active Assessment Fatigue 780.79 Active Assessment Depression 311 Active Problem Atrial fibrillation 427.31 Active Assessment Cellulitis 682.9 Active Problem Anti-common cold drugs causing adverse effect in therapeutic use E945.6 Active Problem Anticoagulants, Encounter for long-term (current) use V58.61 Active Problem Hyperlipidemia, Other and unspecified 272.4 Active Problem Diabetes mellitus without mention of complication, type II or unspecified type, not stated as uncontrolled 250.00 Active Assessment Serum calcium elevated 275.42 Active Assessment Leg pain 729.5 Active Assessment Anticoagulants, Encounter for long-term (current) use V58.61 Active Assessment Hyperlipidemia, Other and unspecified 272.4 Active Assessment Diabetes mellitus without mention of complication, type II or unspecified type, not stated as uncontrolled 250.00 Active Assessment Hypertension, Unspecified 401.9 Active Assessment Atrial fibrillation 427.31 Active Assessment Hand pain 729.5 Active Medications No Known Medications Procedures Procedure Coding System Code Date COMP PROFILE CPT-4 74729 October 06, 2014 HgB A1C CPT-4 28234 October 06, 2014 PROTIME CPT-4 22766 October 06, 2014 CBC CPT-4 71900 October 06, 2014 LIPID PROFILE CPT-4 46771 October 06, 2014 Results No Known Results Summary Purpose eClinicalWorks Submission
--- OUTSIDE RECORDS SUMMARY | 2016-09-26 16:42 | XMS REPORT | Referral Summary ---
Author Organization Unknown Address Unknown Phone Unavailable Care Team Providers Care Building Supervisor Name Role Phone Donny Deleon Primary Care Physician [phone] Encounter VC Date(s): 11/01/14 - 11/04/14 [facility] [address] [place] [address] [phone] Discharge Disposition: Home or Self Care Attending Physician: Michael Gutierrez DO Admitting Physician: Michael Gutierrez DO Vital Signs Most recent to 1 oldest [Reference Range]: Temperature Oral 36.6 degC [35.8-37.3 degC] (11/04/14 2:42 PM) Temperature Temporal 36.6 degC Artery [36.3-37.8 (11/04/14 4:00 AM) degC] Apical Heart Rate 89 bpm [60-100 bpm] (11/04/14 11:49 AM) Peripheral Pulse 101 bpm Rate [60-100 bpm] *HI* (11/01/14 1:40 PM) Heart Rate Monitored 98 bpm [60-100 bpm] (11/04/14 3:00 PM) Respiratory Rate 17 br/min [14-20 br/min] (11/04/14 3:00 PM) Blood Pressure 146/84 mmHg [90-140/60-90 mmHg] *HI* (11/04/14 2:42 PM) Mean Arterial 103 mmHg Pressure, Cuff (11/04/14 3:00 PM) Most recent to 1 oldest [Reference Range]: SpO2 99 % (11/04/14 3:00 PM) Problem List Condition Effective Dates Status Health Status Informant Acute Active pain(Confirmed) At risk for unstable Active blood glucose level(Confirmed)1 Atrial Active patient fibrillation(Confirm ed) DVT (deep venous Active patient thrombosis)(Confirme d) Diabetes(Confirmed) Active patient Gout(Confirmed) Active patient Hypertension(Confirm Active patient ed) Knowledge Active deficit(Confirmed)2 Pulmonary Active patient embolism(Confirmed) Tissue perfusion [...] Dilaudid Vomiting Active penicillin SWELLING Active Medications Alpha Lipoic Acid Oral, Daily, OTC medication, 0 Refill(s) Special Instructions: OTC medication Start Date: 11/01/14 Status: Ordered B-12 Oral, Daily, OTC medication, 0 Refill(s) Special Instructions: OTC medication Start Date: 11/01/14 Status: Ordered citalopram 20 mg, Oral, Daily, 0 Refill(s) Start Date: 10/31/14 Status: Ordered digoxin 125 mcg, Oral, Daily, 0 Refill(s) Start Date: 10/31/14 Status: Ordered diltiazem 180 mg/24 hours oral capsule, extended release 1 caps, Oral, Daily, 0 Refill(s) Start Date: 11/04/14 Status: Ordered enoxaparin 150 mg/mL injectable solution 0.8 mL, SubCutaneous, q12hr, 0 Refill(s) Start Date: 11/04/14 Status: Ordered Fish Oil 1 tabs, Oral, BID, 0 Refill(s) Start Date: 11/01/14 Status: Ordered Indocin 25 mg, Oral, TID, 0 Refill(s) Start Date: 10/31/14 Status: Ordered metFORMIN 500 mg, Oral, Daily, 0 Refill(s) Start Date: 10/31/14 Status: Ordered multivitamin 1 tabs, Oral, Daily, 0 Refill(s) Start Date: 11/01/14 Status: Ordered traMADol 50 mg, Oral, q6hr, as needed for pain, 0 Refill(s) Start Date: 10/31/14 Status: Ordered warfarin 5 mg oral tablet 1 tabs, Oral, Daily, 0 Refill(s) Start Date: 11/04/14 Status: Ordered Results Hematology Most recent to 1 oldest [Reference Range]: WBC [4.8-10.8 K/uL] 9.4 K/uL (11/04/14:19 AM) RBC [4.00-5.20 M/uL] 4.19 M/uL (11/04/14 AM) Hgb [12.0-16.0 12.6 gm/dL gm/dL] (11/04/14 AM) Hct [37.0-47.0 %] 38.8 % (11/04/14 AM) MCV [82.0-99.0 fL] 92.6 fL (11/04/14 AM) MCH [27.0-32.0 pg] 30.1 pg (11/04/14 AM) MCHC [32.0-36.0 32.5 gm/dL gm/dL] (11/04/14 AM) RDW [11.5-14.5 %] 16.9 % *HI* (11/04/14: AM) Platelet [150-400 218 K/uL K/uL] (11/04/14 AM) MPV [9.4-12.4 fL] 9.6 fL (11/04/14: AM) Immature 0.4 % Granulocytes (11/02/14 5:35 AM) [0.0-1.0 %] Neutrophils [51-75 49 % %] *LOW* (11/02/14 5:35 AM) Lymphocytes [20-46 39 % %] (11/02/14 5:35 AM) Monocytes [4-11 %] 8 % (11/02/14 5:35 AM) Eosinophils [0-4 %] 4 % (11/02/14 5:35 AM) Basophils [0-2 %] 0 % (11/02/14 5:35 AM) Neutro Absolute 3.47 THOUS [1.90-7.00 THOUS] (11/02/14 5:35 AM) Lymph Absolute 2.75 THOUS [0.80-3.30 THOUS] (11/02/14 5:35 AM) [place] Absolute 0.54 THOUS [0.30-1.00 THOUS] (11/02/14 5:35 AM) Eos Absolute 0.31 THOUS [0.00-0.50 THOUS] (11/02/14 5:35 AM) Baso Absolute 0.03 THOUS [0.00-0.20 THOUS] (11/02/14 5:35 AM) Nucleated RBC 0.0 /100 WBC Automated [0 /100 (11/02/14 5:35 AM) WBC] Coagulation Most recent to 1 oldest [Reference Range]: INR [0.9-1.2] 1.3 *HI* (11/04/14 2:17 AM) PTT [25.0-35.0] 48.7 *HI* (11/04/14 2:17 AM) Chemistry Most recent to 1 oldest [Reference Range]: Sodium Lvl [136-144 139 mEq/L mEq/L] (11/04/14 2:17 AM) Potassium Lvl 4.0 mEq/L [3.6-5.1 mEq/L] (11/04/14 2:17 AM) Chloride [99-109 105 mEq/L mEq/L] (11/04/14 2:17 AM) CO2 [22-32 mEq/L] 25 mEq/L (11/04/14 2:17 AM) AGAP [3-20] 9 (11/04/14 2:17 AM) BUN [4-20 mg/dL] 13 mg/dL (11/04/14 2:17 AM) Glucose Lvl [70-100 149 mg/dL mg/dL] *HI* (11/04/14 2:17 AM) Creatinine Lvl 0.90 mg/dL [0.44-1.03 mg/dL] (11/04/14 2:17 AM) eGFR [>60] >60 2 (11/04/14 2:17 AM) Calcium Lvl 9.9 mg/dL [8.6-10.0 mg/dL] (11/04/14 2:17 AM) Albumin Lvl [3.5-4.8 3.3 gm/dL gm/dL] *LOW* (11/01/14 9:48 AM) Total Protein 6.7 gm/dL [6.1-7.9 gm/dL] (11/01/14 9:48 AM) Globulin [1.9-4.3 3.4 gm/dL gm/dL] (11/01/14 9:48 AM) ALT [14-54 unit/L] 18 unit/L (11/01/14 9:48 AM) AST [15-41 unit/L] 24 unit/L (11/01/14 9:48 AM) Alk Phos [26-104 63 unit/L unit/L] (11/01/14 9:48 AM) Bili Total [0.2-1.2 0.7 mg/dL 1 mg/dL] (11/01/14 9:48 AM) BNP [0-99 pg/mL] 246 pg/mL *HI* (11/01/14 9:48 AM) Troponin [<0.06 <0.05 ng/mL ng/mL] (11/01/14 8:49 PM) Blood Glucose, 124 mg/dL Capillary [74-106 *HI* mg/dL] (11/03/14 6:09 AM) TSH [0.35-5.50] 3.25 (11/01/14 9:48 AM) 1Result Comment: Naproxen, specifically the metabolite O-desmethylnaproxen, may cause spurious elevation in Total Bilirubin levels. 2Result Comment: Multiply eGFR results by 1.21 for race. Immunizations Vaccine Date Refusal Reason influenza virus vaccine, live 05/02/13 Procedures Procedure Date Related Diagnosis Body Site Carpal tunnel release Cholecystectomy Surgery1 12 heart caths negative Social History Social History Type Response Smoking Status Former smoker Assessment and Plan No data available for this section
--- OUTSIDE RECORDS SUMMARY | 2016-09-26 16:42 | XMS REPORT ---
Author Author Donny Deleon [facility] eClinicalWorks Address Unknown Phone Unavailable Care Team Providers Care Lamp Shade Sewer Name Role Phone Donny Deleon Unavailable Allergies [...] Instructions Start Date End Date Status Dosage Triamterene-HCTZ [facility] [address]-69 37.5-25 MG Orally Once a day Aug 10, 2011 1 tablet in the morning Metoprolol Succinate ER [facility] [address]-81 100 MG Orally Once a day May 26, 2014 as directed Citalopram Hydrobromide [facility] 19615196584 20MG TAKE ONE TABLET BY MOUTH ONCE DAILY Gabapentin [facility] [address]-60 300MG TAKE ONE CAPSULE BY MOUTH EVERY DAY Tramadol HCl [facility] 02496531094 50MG Orally every 6 hrs PRN 1 TABLET Digoxin [facility] [address]-31 0.125 MG Orally Once a day 1 tablet Metformin HCl [facility] [address]-82 500 MG Orally Twice a day take one tablet by mouth twice daily Atorvastatin Calcium [facility] [address]-66 20 MG Orally Once a day October 29, 2014 1 tablet Invokana [facility] [address]-14 100 MG Orally Once a day October 29, 2014 1 tablet Coumadin [facility] [address]-39 5 MG Orally Once a day or as directed Aug 03, 2011 1.5 tabs Proventil HFA [facility] [address]-11 CFC FREE 90 MCG/INH INHALATION q 4hrs December 21, 2009 1 (one) PUFF AEROSOL WITH ADAPTER q 4hrs PredniSONE [facility] [address]-45 10 MG Orally qD October 09, 2014 6 po day 1, then 5 po day 2, then 4 po day 3, then 3 po day 4, then 2 po day 5, then 1 po day 6 Colchicine [facility] [address]-41 0.6 MG Orally Once a day 1 tablet Klor-Con [facility] [address]-50 8 MEQ Orally Once a day TAKE ONE BY MOUTH EVERY DAY Coumadin [facility] [address]-76 1 MG Orally ONE TIME EACH DAY TAKE ONE TABLET BY MOUTH EVERY DAY Indomethacin [facility] [address]-49 25 MG Orally tid 1 capsule with food Results No Known Results Summary Purpose eClinicalWorks Submission
--- OUTSIDE RECORDS SUMMARY | 2016-09-26 16:42 | XMS REPORT ---
Author Author Donny Deleon [facility] eClinicalWorks Address Unknown Phone Unavailable Care Team Providers Care Head Doffer Name Role Phone Donny Deleon Unavailable [...]
--- OUTSIDE RECORDS SUMMARY | 2016-09-26 16:42 | XMS REPORT ---
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
--- OUTSIDE RECORDS SUMMARY | 2016-09-26 16:42 | XMS REPORT ---
Author Author Donny Deleon [facility] eClinicalWorks Address Unknown Phone Unavailable Care Team Providers Care Refrigeration Specialist Name Role Phone Donny Deleon Unavailable Allergies [...]
--- OUTSIDE RECORDS SUMMARY | 2016-09-26 16:42 | XMS REPORT ---
Author Author Donny Deleon [facility] eClinicalWorks Address Unknown Phone Unavailable Care Team Providers Care Foundry Supervisor Name Role Phone Donny Deleon Unavailable [...] HCl [facility] 94983320048 50MG Orally every 6 hrs PRN 1 TABLET Results No Known Results Summary Purpose eClinicalWorks Submission
--- OUTSIDE RECORDS SUMMARY | 2016-09-26 16:42 | XMS REPORT ---
Author Author Donny Deleon [facility] eClinicalWorks Address Unknown Phone Unavailable Care Team Providers Care Mall Manager Name Role Phone Donny Deleon Unavailable Allergies [...] Date End Date Status Dosage Tramadol HCl [facility] 98725021330 50MG Orally every 6 hrs PRN 1 TABLET Results No Known Results Summary Purpose eClinicalWorks Submission
--- OUTSIDE RECORDS SUMMARY | 2016-09-26 16:42 | XMS REPORT ---
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 40565637435 50MG Orally every 6 hrs PRN 1 TABLET Citalopram Hydrobromide [facility] 42560741774 20MG TAKE ONE TABLET BY MOUTH ONCE DAILY Proventil HFA [facility] [address]-32 CFC FREE 90 MCG/INH INHALATION q 4hrs December 21, 2009 1 (one) PUFF AEROSOL WITH ADAPTER q 4hrs Metformin HCl [facility] [address]-89 500 MG Orally Twice a day take one tablet by mouth twice daily Indomethacin [facility] [address]-76 25 MG Orally tid 1 capsule with food Invokana [facility] [address]-28 100 MG Orally Once a day October 29, 2014 1 tablet WARFARIN SODIUM ND 0 5 MG PO EVERY DAY- TAKE ALONG WITH A 4 MG PILL FOR A TOTAL OF 9MG DAILY 1 TABLET Atorvastatin Calcium [facility] [address]-92 20MG as directed Diltiazem HCl CR [facility] [address]-69 180 MG/24HR Orally Once a day 1 capsule on an empty stomach in the morning Digoxin [facility] [address]-50 0.125 MG Orally Once a day 1 tablet Procedures Procedure Coding System Code Date TCM within 7 days CPT-4 30966 November 12, 2014 Vital Signs Date/Time: November 12, 2014 Blood Pressure Systolic 135 mm Hg Height 67.5 in Weight 277.6 lbs BMI 42.83 Index Blood Pressure Diastolic 70 mm Hg Results No Known Results Summary Purpose eClinicalWorks Submission
--- OUTSIDE RECORDS SUMMARY | 2016-09-26 16:42 | XMS REPORT ---
Author Author Donny Deleon Organization eClinicalWorks Address Unknown Phone Unavailable Care Team Providers Care Assessment Counselor Name Role Phone Donny Deleon Unavailable Allergies [...] Date End Date Status Dosage WARFARIN SODIUM [facility] [address]-71 5 MG PO EVERY DAY- TAKE ALONG WITH A 4 MG PILL FOR A TOTAL OF 9MG DAILY 1 TABLET Results No Known Results Summary Purpose eClinicalWorks Submission
--- OUTSIDE RECORDS SUMMARY | 2016-09-26 16:42 | XMS REPORT ---
Author Author Donny Deleon [facility] eClinicalWorks Address Unknown Phone Unavailable Care Team Providers Care Grey Washer Name Role Phone Donny Deleon Unavailable Allergies [...] Date End Date Status Dosage Tramadol HCl [facility] 77994779234 50MG Orally every 6 hrs PRN 1 TABLET Results No Known Results Summary Purpose eClinicalWorks Submission
--- OUTSIDE RECORDS SUMMARY | 2016-09-26 16:42 | XMS REPORT ---
Author Author Donny Deleon [facility] eClinicalWorks Address Unknown Phone Unavailable Care Team Providers Care Finishing Area Operator Name Role Phone Donny Deleon Unavailable Allergies, Adverse Reactions, Alerts Substance Reaction Event Type penicillin Info Not Available Drug Allergy Tramadol HCl Info Not Available Drug Allergy Dilaudid Info Not Available Drug Allergy Problems Problem Type Condition ICD-9 Code Onset Dates Condition Status Assessment Hand pain 729.5 Active Problem Other pulmonary embolism and infarction [...] Active Assessment Hypertension, Unspecified 401.9 Active Assessment Swelling of arm 729.81 Active Assessment Diabetes mellitus without mention of complication, type II or unspecified type, not stated as uncontrolled 250.00 Active Medications Medication Code System Code Instructions Start Date End Date Status Dosage Klor-Con [facility] [address]-14 8 MEQ Orally Once a day Active TAKE ONE BY MOUTH EVERY DAY Citalopram Hydrobromide [facility] 49818379101 20MG Active TAKE ONE TABLET BY MOUTH EVERY DAY Digoxin [facility] [address]-43 0.125 MG Orally Once a day May 26, 2014 Inactive 1 tablet Colchicine [facility] [address]-15 0.6 MG Orally Once a day Active 1 tablet Losartan Potassium [facility] [address]-17 50 May 20, 2013 Active TAKE ONE TABLET BY MOUTH TWICE DAILY Triamterene-HCTZ [facility] [address]-76 37.5-25 MG Orally Once a day Aug 10, 2011 Active 1 tablet in the morning Proventil HFA [facility] [address]-44 CFC FREE 90 MCG/INH INHALATION q 4hrs December 21, 2009 Active 1 (one) PUFF AEROSOL WITH ADAPTER q 4hrs Metformin HCl [facility] [address]-59 500 MG Orally Twice a day Active take one tablet by mouth twice daily Coumadin [facility] [address]-86 5 MG Orally Once a day or as directed Aug 03, 2011 Active 1.5 tabs Losartan Potassium [facility] [address]-93 50 MG Orally Once a day May 20, 2013 Active 1 tablet Gabapentin [facility] [address]-29 300MG Active TAKE ONE CAPSULE BY MOUTH EVERY DAY Coumadin [facility] [address]-66 1 MG Orally ONE TIME EACH DAY Active TAKE ONE TABLET BY MOUTH EVERY DAY Metoprolol Succinate ER [facility] [address]-60 100 MG Orally Once a day May 26, 2014 Active as directed Procedures Procedure Coding System Code Date CBC CPT-4 33100 May 26, 2014 URIC ACID CPT-4 92884 May 26, 2014 HAND 3 VIEW CPT-4 46870 May 26, 2014 D-dimer CPT-4 74821 May 26, 2014 SED RATE AUTOMA CPT-4 18461 May 26, 2014 OFFICE VISITEST PT CPT-4 59040 May 26, 2014 VENOUS UNILATERAL CPT-4 00937 May 26, 2014 Vital Signs Date/Time: May 26, 2014 Blood Pressure Systolic 155 mm Hg Height 67.5 in Weight 292.7 lbs BMI 45.16 Index Oximetry 94 % Cardiac Monitoring Heart Rate 78 /min Blood Pressure Diastolic 95 mm Hg Results Name Result Date Reference Range Unit CBC X ray : Hands, left 3 view Summary Purpose eClinicalWorks Submission
[2016-09-26] MEDS ORDERED: DILTIAZEM 25mg/5ml INJECTION IV ONE (16:45)
[2016-09-26] MEDS ORDERED: DILTIAZEM 125 MG in NORMAL SALINE 125 ML IV SCH (16:45)
[2016-09-26] MEDS ORDERED: NITROGLYCERIN 0.4 MG SUBLINGUAL TABLET SL PRN (16:45)
[2016-09-26] MEDS ORDERED: NORMAL SALINE 1,000 ML IV ONE (16:45)
[2016-09-26] MEDS ORDERED: WARF5TAB6 PO (16:49)
[2016-09-26] MEDS ORDERED: DIGO125T88 PO (16:49)
[2016-09-26] MEDS ORDERED: CITA20TA9 PO (16:49)
[2016-09-26] MEDS ORDERED: METF500T4 PO (16:49)
[2016-09-26] MEDS ORDERED: MULT1TAB69 PO (16:50)
[2016-09-26] MEDS ORDERED: GABA-305 PO (16:50)
[2016-09-26 16:55] LABS: BASOPHILS % (AUTO) 0.4 % (0-2); EOSINOPHILS # (AUTO) 0.2 T/MM3 (0-0.5); EOSINOPHILS % (AUTO) 2.4 % (0-4); HCT - HEMATOCRIT 41.3 % (36-46); HGB - HEMOGLOBIN 13.4 GM/DL (12-16); IMMATURE GRANULOCYTE # (AUTO) 0.02 T/MM3 (0.00-0.03); IMMATURE GRANULOCYTE % (AUTO) 0.2 % (0.0-0.5); LYMPHOCYTES # (AUTO) 3.7 T/MM3 (1-4.8); LYMPHOCYTES % (AUTO) 38.7 % (23-45); MEAN CORPUSCULAR HGB 29.3 UUG (26-34); MEAN CORPUSCULAR HGB CONC(MCHC 32.4 GM/DL (31-37); MEAN CORPUSCULAR VOLUME 90.4 UM3 (80-100); MEAN PLATELET VOLUME 9.6 UM3 (9.4-12.4); MONOCYTES # (AUTO) 0.5 T/MM3 (0-0.8); MONOCYTES % (AUTO) 4.9 % (0-9.0); NEUTROPHILS #(AUTO)-ABSOLUTE 5.1 T/MM3 (1.8-7.7); NEUTROPHILS % (AUTO) 53.4 % (33-66); RED BLOOD COUNT 4.57 M/MM3 (4.00-5.20); WBC - WHITE BLOOD COUNT 9.6 T/MM3 (4.5-11.0)
--- OUTSIDE RECORDS SUMMARY | 2016-09-26 16:55 | XMS REPORT ---
Author Author [place], [facility] - Organization Unknown Address Unknown Phone Unavailable Allergies, Adverse Reactions, Alerts * tramadol causes Eczema (rash). * Dilaudid causes Adverse Reaction. * Penicillins causes SWELLING. * No Latex Allergy. * No IV Contrast Allergy. * No Known Food Allergies. Problems * Diabetes Mellitus* Status:Active. * Pulmonary Embolism* Status:Active. Procedures No relevant procedures performed. Medication It is the responsibility of the patient or patient sales representative wire rope to confirm the list of medications with [...]
--- OUTSIDE RECORDS SUMMARY | 2016-09-26 16:56 | XMS REPORT | Continuity of Care Document ---
Author Author [facility] Organization [facility] Address Unknown Phone Unavailable Allergies [...] NOS 08/07/2013November Torres JOHNSON Final 414.01 COR -TLINGIT & HAIDA VESSEL 08/07/2013November Torres JOHNSON Final 454.9 ASYMPT [...] Status Pt. Type Provider Facility Loc./Unit Complaint [id number] 08/07/2013 13:56:00 2013 19:03:00 DIS Outpatient Torres Muir MD [facility] F7 [id number] 05/02/2013 00:49:00 2012 11:57:00 DIS Outpatient Umer JOHNSON, Kapil [facility] F4SE [id number] 02/14/2013 18:47:00 2012 10:44:00 DIS Inpatient Logan JOHNSON, Wei [facility] F8SW
--- OUTSIDE RECORDS SUMMARY | 2016-09-26 16:56 | XMS REPORT ---
Author Author [place], [facility] - Organization Unknown Address Unknown [...] the responsibility of the patient or patient industrial sales representative to confirm the list of [...]
[2016-09-26 17:00] LABS: INR 2.15 (0.76-1.04); PROTHROMBIN TIME 23.4 SEC (9.31-12.49)
[2016-09-26 17:05] LABS: ALBUMIN 3.9 G/DL (3.5-5.0); ALBUMIN/GLOBULIN RATIO 1.2 RATIO (1.1-2.2); ALKALINE PHOSPHATASE 69 U/L (38-126); ALT (SGPT) 28 U/L (9-52); ANION GAP 14 MEQ/L (5-15); AST (SGOT) 22 U/L (14-36); BUN/CREATININE RATIO 19 RATIO (6-26); CALCIUM 10.5 MG/DL (8.4-10.2); CHLORIDE 107 MEQ/L (98-107); CO2 - CARBON DIOXIDE 24 MEQ/L (22-30); GLOMERULAR FILTRATION RATE 55; GLUCOSE 108 MG/DL (65-110); POTASSIUM 4.6 MEQ/L (3.6-5); SODIUM 145 MEQ/L (134-144); TOTAL PROTEIN 7.2 G/DL (6.3-8.2)
[2016-09-26 17:17] LABS: PROBNP 1880 PG/ML (0-175)
--- NOTE | 2016-09-26 17:21 | ERPDOC ---
Departure Disposition Decision Date: Sep 26, 2016 Disposition Decision Time: 17:50 Disposition: 02 TO [facility] Impression Impression Impression: Primary Impression: Atrial fibrillation with RVR Severity: Moderate Condition: Stable Seen By: Physician only Problems/Meds/Labs Reviewed?: Yes Medications reviewed and manag: Yes Follow up care ordered?: Yes Mental Status: Alert, Oriented Scripts Amlodipine Besylate (Amlodipine Besylate) 5 Mg Tablet 5 MG PO DAILY for 30 Days, #30 TAB 11 Refills Prov: SANYA GAONA OCEANOGRAPHIC METEOROLOGIST 09/28/16 Amiodarone HCl (Pacerone) 200 Mg Tablet 200 MG PO DAILY for 30 Days, #30 TAB 11 Refills Prov: SANYA GAONA OCEANOGRAPHIC METEOROLOGIST 09/28/16 HPI - Cardiac General Chief Complaint: Chest Pain Stated Complaint: SOA Time Seen by Provider: 16:44 Source: patient Exam Limitations: no limitations HPI - Cardiac General Initial Comments Patient is a 66-year-old female presents emergency room for evaluation of weakness shortness of air nausea. Patient has been feeling weak and short of air for about a week now, for the last 24 hours has been getting significantly worse with now associated nausea. Patient does have a history of atrial fibrillation, doesn't know if she is chronically in atrial fibrillation or not. Patient on arrival irregularly irregular heart rate Aspirin Today: contraindicated (patient anticoagulated) Allergies: Coded Allergies: Penicillins (Verified Allergy, Unknown, 09/26/16) hydromorphone (Verified Allergy, Unknown, NAUSEA, 09/26/16) Past History Past Medical History Metabolic: diabetes, hypertension Cardiac: A-fib Social History Substance Use Type: does not use Alcohol Intake: none Review of Systems Constitutional Constitutional: appetite decrease, weakness, DENIES: chills, dizziness, fever Eyes Vision: DENIES: double vision, loss of visual he ENMT Sinuses: DENIES: congestion, rhinorrhea Mouth/Throat: DENIES: scratchy throat, sore throat Cardiovascular Cardiac: dyspnea on exertion, DENIES: chest pain Pulmonary Respiratory: dyspnea, DENIES: cough, sputum, tachypnea GI Upper Abdomen: DENIES: nausea, pain, vomiting Lower Abdomen: DENIES: constipation, diarrhea, pain General: DENIES: frequency, urgency Musculoskeletal General: DENIES: cramps, pain, weakness Integumentary Skin: DENIES: color change, itching, rash Endocrine Endocrine: DENIES: heat/cold intolerance Hematologic/Lymphatic Hematologic/Lymphatic: DENIES: anemia Physical Exam General General Nourishment: well nourished, well developed General Body Habitus: well groomed Vitals and Pain Weight: Kilograms: 117.400 Height (feet): 5 Height (inches): 7.00 Triage Pain Scale: RN VS reviewed by Provider: Yes Eyes (brief) Eyes Brief: found: EOMI ENMT (brief) ENMT Brief: FOUND: mucosa moist, normal dentition, NOT FOUND: nasal erythema, pharnyx erythema, tonsillar deviation Neck (brief) Neck: NOT FOUND: adenopathy, spasm, tenderness Respiratory (brief) Respiratory: FOUND: clear all he, equal bilaterally, NOT FOUND: rales, wheezes Cardiovascular (brief) Cardiac: NOT FOUND: regular rate, regular rhythm Capillary Refill: <2 sec Abdomen (brief) Abdominal Brief: FOUND: bowel normo active x4, soft, NOT FOUND: distended, tender Lymphatic (brief) Lymphatic Brief: NOT FOUND: adenopathy Musculoskeletal (brief) Musculoskeletal Brief: NOT FOUND: spasm, tenderness Integumentary (brief) Integumentary Brief: FOUND: dry, pink, warm, NOT FOUND: rash Neurologic (brief) Neurological Brief: FOUND: CN w/o gross def to obs, motor-no gross deficits, sensory-no gross deficits Psychiatric (brief) Psychiatric Brief: FOUND: alert, oriented Differential Diagnoses Considering: Acute TN, Anxiety/Panic, Atrial Fibrillation, Brugada Syndrome, PSVT, Pulmonary Embolus, Ventricular Tachycardia, WPW Progress Results/Orders Orders Procedure Category Date Status Time Cbc W/Auto LAB 09/26/16 Complete Diff-Reflex Manual 16:44 Cmp - Comprehensive LAB 09/26/16 Complete Metabolic 16:44 Probnp LAB 09/26/16 Complete 16:44 Troponin I W LAB 09/26/16 Complete Hemolysis Index 16:44 INR LAB 09/26/16 Complete 16:44 EKG EKG 09/26/16 Taken 16:44 Chest 1 View RAD 09/26/16 Resulted 16:44 Iv Lock (Ed Only) EDM 09/26/16 Transmitted 16:44 Nitroglycerin PHA 09/26/16 Complete (Nitrostat) 16:45 Normal Saline (Normal PHA 09/26/16 Complete Saline Iv) 16:45 Diltiazem (Cardizem*) PHA 09/26/16 Complete Iv Bolus (Cardizem 16:45 Normal Saline (Ns) PHA 09/26/16 Complete W/Diltiazem 16:45 Digoxin LAB 09/26/16 Complete 16:56 Measure Vital Signs [facility] 09/26/16 Complete 17:48 Up In Room With Assist [facility] 09/26/16 Complete 17:48 Iv Lock (Nursing) [facility] 09/26/16 Complete 17:48 Prn Orders (Adult) [facility] 09/26/16 Complete (May Use Prn Orders) 18:00 Troponin I W LAB 09/26/16 Complete Hemolysis Index 23:00 Troponin I W LAB 09/27/16 Complete Hemolysis Index 05:00 Troponin I W LAB 09/27/16 Complete Hemolysis Index 11:00 Lab Results Laboratory Tests Test 09/26/16 16:48 White Blood Count 9.6T/MM3 Red Blood Count 4.57M/MM3 Hemoglobin 13.4GM/DL Hematocrit 41.3% Mean Corpuscular Volume 90.4UM3 Mean Corpuscular Hemoglobin 29.3UUG Mean Corpuscular Hemoglobin Concent 32.4GM/DL RDW Standard Deviation 51.5FL Platelet Count 287T/MM3 Mean Platelet Volume 9.6UM3 Immature Granulocyte % (Auto) 0.2% Neutrophils (%) (Auto) 53.4% Lymphocytes (%) (Auto) 38.7% Monocytes (%) (Auto) 4.9% Eosinophils (%) (Auto) 2.4% Basophils (%) (Auto) 0.4% Absolute Immature Granulocyte (auto 0.02T/MM3 Absolute Neutrophils (auto) 5.1T/MM3 Absolute Lymphocytes (auto) 3.7T/MM3 Absolute Monocytes (auto) 0.5T/MM3 Absolute Eosinophils (auto) 0.2T/MM3 Absolute Basophils (auto) 0.0T/MM3 Prothromb Time International Ratio 2.15 Turbidity < 20 Sodium Level 145MEQ/L Potassium Level 4.6MEQ/L Chloride Level 107MEQ/L Carbon Dioxide Level 24MEQ/L Anion Gap 14MEQ/L Blood Urea Nitrogen 19.0MG/DL Creatinine 1.0MG/DL Glomerular Filtration Rate Calc 55 BUN/Creatinine Ratio 19RATIO Glucose Level 108MG/DL Calculated Osmolality 282MOSM/KG Calcium Level 10.5MG/DL Total Bilirubin 0.50MG/DL Icterus Index < 2 Aspartate Amino Transf (AST/SGOT) 22U/L Alanine Aminotransferase (ALT/SGPT) 28U/L Alkaline Phosphatase 69U/L Troponin I 0.032ng/ml SR-Oyy-X-Type Natriuretic Peptide 1880PG/ML Total Protein 7.2G/DL Albumin 3.9G/DL Globulin 3.3G/DL Albumin/Globulin Ratio 1.2RATIO Chemistry Specimen Hemolysis < 15 Digoxin Level 0.6NG/ML Medications Current ED Medications Nitroglycerin 0.4 mg 0.4 mg Q5MIN PRN SL CHEST PAIN Last administered on 17:23; Start 09/26/16 at 16:45; Stop 09/28/16 at 21:37; Status DC Sodium Chloride (Normal Saline IV) 1,000 ml @ 100 mls/hr Q10H ONCE IV Last administered on 09/26/16 17:02; Start 09/26/16 at 16:45; Stop 09/27/16 at 02:44 ; Status DC Diltiazem HCl 10 mg 10 mg O ONCE IV Last administered on 09/26/16 17:00; Start 09/26/16 at 16:45; Stop 09/26/16 at 16:48; Status DC Diltiazem HCl/ Sodium Chloride (Cardizem 125 Mg/ 25 ml Injection/ NS) 125 ml @ 5 mls/hr Q24H IV Last administered on 09/26/16 17:22; Start 09/26/16 at 16:45 ; Stop 09/27/16 at 16:42; Status DC EKG EKG : Rate: >100 Rhythm: atrial fibrillation [place]: normal QRS: normal Intervals: normal ST/T: non-specific changes Interpreted by: signing physician Xray Xray : Xray: CXR Portable Interpretation: Normal, Reviewed Written Report VIN GREENE MD Sep 26, 2016 17:21
--- NOTE | 2016-09-26 17:22 | NUR ---
ASSESS HR & BP HAS LOWERED. CHEST COMFORT DOWN TO 1/10. PT SAYS SHE FEELS SLEEPY.
--- NOTE | 2016-09-26 17:50 | NUR ---
REPORT TO TAD FALCON IN CCU
--- NOTE | 2016-09-26 17:51 | NUR ---
DR GREENE IN
[2016-09-26] MEDS ORDERED: PRN ORDERS MC (18:00)
--- NOTE | 2016-09-26 18:03 | NUR ---
TRANSPORT PER CART ON MONITOR & CARDIZEM DRIP ACCOMPANIED BY JENNIEFR ARIAS RN TO CCU BED 4.
--- OUTSIDE RECORDS SUMMARY | 2016-09-26 18:09 | XMS REPORT ---
Author Author [place], [facility] - Organization Unknown Address Unknown Phone [...] the responsibility of the patient or patient termite control service representative to confirm the list of medications [...]
--- OUTSIDE RECORDS SUMMARY | 2016-09-26 18:10 | XMS REPORT ---
Author Author [place], [facility] - Organization Unknown Address Unknown Phone [...] the responsibility of the patient or patient installation service representative to confirm the list of [...]
--- OUTSIDE RECORDS SUMMARY | 2016-09-26 18:10 | XMS REPORT | Continuity of Care Document ---
Author Author [facility] Organization [facility] Address Unknown Phone Unavailable Allergies Active [...] MD Final 311 DEPRESSIVE DISORDER NEC 02/15/2013 eWi Ford MD Final 401.9 HYPERTENSION NOS 02/15/2013 [...] NOS 08/07/2013November Torres JOHNSON Final 414.01 COR -NOORVIK VESSEL 08/07/2013November Torres JOHNSON Final 454.9 ASYMPT [...] Status Pt. Type Provider Facility Loc./Unit Complaint [id number] 08/07/2013 13:56:00 2013 19:03:00 DIS Outpatient Torres Muir MD [facility] F7 [id number] 05/02/2013 00:49:00 2012 11:57:00 DIS Outpatient Umer JOHNSON, Kapil [facility] F4SE [id number] 02/14/2013 18:47:00 2012 10:44:00 DIS Inpatient Logan JOHNSON, Wei [facility] F8SW
--- NOTE | 2016-09-26 18:50 | NUR ---
ADMISSION PT ADMITTED TO ROOM 4 VIA CART. PT WALKED TO BED IN ROOM. PT IS A&OX3, UP WITH ONE ASSIST, MODERATE FALL. PT ORIENTED TO ROOM AND HOSPITAL BED. AWAITING FURTHER ORDERS. ALARMS IN USE.
--- NOTE | 2016-09-26 20:00 | NUR ---
ACTIVITY UP TO COMMODE WITH ASSIST. SOME WEAKNESS IN RIGHT LEG. SOME SOA WITH ACTIVITY. NO CHEST PAIN.
[2016-09-26] MEDS ORDERED: MORPHINE SULFATE 2 MG SYRINGE IV PRN (22:15)
[2016-09-26] MEDS ORDERED: ACETAMINOPHEN 325 MG TABLET PO PRN (22:15)
[2016-09-26] MEDS ORDERED: ONDANSETRON 4mg/2ml INJECTION IM PRN (22:15)
[2016-09-26] MEDS ORDERED: WARFARIN 5 MG TABLET PO ONE (22:30)
[2016-09-26] MEDS: METFORMIN 500 MG TABLET PO SCH (22:48)
[2016-09-27] VITALS (69 sets, daily range): BP systolic 115–192; BP diastolic 7–112; PULSE 49–93; RESP 12–42; TEMP 97.6–98.1; O2SAT 90–100
--- NOTE | 2016-09-27 | NUR ---
Chest Pain Patient complains of CP at a 2/10. She stated that it felt "like someone was pinching" her. PRN Morphine was given.
[2016-09-27] MEDS ORDERED: ONDANSETRON 4mg/2ml INJECTION IV PRN (04:15)
--- NOTE | 2016-09-27 05:38 | NUR ---
Shift summary Patient slept well during the night. No nausea reported. SOA upon activity. Denies CP at this time, does complain of chest discomfort though. HR has been 60s, rhythm AFIB, BP 130-170s/60-80s, O2 1L NC. Earlier in the shift patient did complain of short episodes of SOA that went away fairly quickly.
--- NOTE | 2016-09-27 07:57 | DI ---
EXAM: CHEST 1 VIEW LOCATION OF DICTATION: [place] HISTORY: ITS.REASON: atrial fibrillation COMPARISON: No prior studies available for comparison. FINDINGS: The heart is moderately enlarged. Central pulmonary vasculature is within normal limits. Breast shadowing overlies the lower lung zones. No definite consolidating opacities or pleural effusions. The osseous structures are within normal limits for the patient's age. IMPRESSION: Moderate cardiomegaly without evidence for overt congestive heart failure or pneumonia. .
--- NOTE | 2016-09-27 09:07 | NUR ---
CM CM IN TO VISIT PATIENT, SHE IS A&O. NO FAMILY IS PRESENT. PATIENT PLANS TO DISCHARGE HOME, SAID SHE LIVES ALONE BUT SON LIVES A COUPLE BLOCKS AWAY AND CAN HELP IF NEEDED. DENIES ANY DISCHARGE NEEDS. CM CONTACT INFORMATION PROVIDED. Addendum: 09/27/16 at 0908 by JEFF MAGANA RN Amended: Links added.
--- NOTE | 2016-09-27 09:09 | NUR ---
CM LACE 1, NO FURTHER FOLLOW UP IS NEEDED.
[2016-09-27 09:28] LABS: BASOPHILS % (AUTO) 0.4 % (0-2); EOSINOPHILS # (AUTO) 0.3 T/MM3 (0-0.5); EOSINOPHILS % (AUTO) 3.6 % (0-4); HGB - HEMOGLOBIN 12.1 GM/DL (12-16); IMMATURE GRANULOCYTE # (AUTO) 0.02 T/MM3 (0.00-0.03); IMMATURE GRANULOCYTE % (AUTO) 0.2 % (0.0-0.5); LYMPHOCYTES # (AUTO) 3.6 T/MM3 (1-4.8); LYMPHOCYTES % (AUTO) 42.2 % (23-45); MEAN CORPUSCULAR VOLUME 93.5 UM3 (80-100); MEAN PLATELET VOLUME 10.3 UM3 (9.4-12.4); MONOCYTES # (AUTO) 0.6 T/MM3 (0-0.8); MONOCYTES % (AUTO) 7.1 % (0-9.0); NEUTROPHILS #(AUTO)-ABSOLUTE 3.9 T/MM3 (1.8-7.7); NEUTROPHILS % (AUTO) 46.5 % (33-66); RED BLOOD COUNT 4.17 M/MM3 (4.00-5.20); WBC - WHITE BLOOD COUNT 8.5 T/MM3 (4.5-11.0)
--- NOTE | 2016-09-27 09:30 | NUR ---
Morning cares Morning cares provided to pt on toilet. Pt ambulated without difficulty to BR and performed bath there. Pt denied SOA with that activity. Also has denied CP this morning. Pt did eat light breakfast before 0800 and is now NPO. Will continue to monitor.
[2016-09-27 09:34] LABS: ANION GAP 9 MEQ/L (5-15); BUN/CREATININE RATIO 16 RATIO (6-26); CALCIUM 9.8 MG/DL (8.4-10.2); CHLORIDE 107 MEQ/L (98-107); CO2 - CARBON DIOXIDE 26 MEQ/L (22-30); CREATININE 1.1 MG/DL (0.7-1.2); GLOMERULAR FILTRATION RATE 50; GLUCOSE 102 MG/DL (65-110); MAGNESIUM 1.6 MG/DL (1.6-2.3); POTASSIUM 4.5 MEQ/L (3.6-5); SODIUM 142 MEQ/L (134-144)
[2016-09-27 10:06] LABS: THYROID STIM HORMONE-TSH 3.61 MIU/L (0.47-4.68)
[2016-09-27] MEDS ORDERED: AMIODARONE 900 MG in NORMAL SALINE 500 ML IV SCH ×2 (10:59→17:00)
[2016-09-27] MEDS ORDERED: NORMAL SALINE IV ONE (10:59)
[2016-09-27] MEDS ORDERED: AMIODARONE IV ONE (10:59)
[2016-09-27] MEDS ORDERED: INFLUENZA VAC. ADMIN CHARGE INJ ONE (11:36)
[2016-09-27] MEDS ORDERED: PNEUMOCOCCAL VAC. ADMIN. CHARGE INJ ONE (11:36)
--- NOTE | 2016-09-27 12:26 | NUR ---
DM Diet: Cardiac CC 2199 kirt Patient states that her blood sugars at home are normally in the 120's-130's. Patient also stated that she has cut out sugary beverages and tries to eat three meals a day. Patient mentioned having lost 50 pounds within the last year. Patient didn't feel she needed any further diabetes education at the moment. VIPIN provided contact information for questions. RD available @ [phone] Addendum: 09/27/16 at [address] Student charting reviewed by Fresco Artist.
--- NOTE | 2016-09-27 14:54 | ECHOF ---
ECHOCARDIOGRAM REPORT DATE OF PROCEDURE September 27, 2016 This is a two-dimensional echo with spectral Doppler, color-flow and M-mode. It was obtained in a patient with atrial fibrillation. Left atrium is mildly dilated. Left ventricular end-diastolic dimension is increased. Left ventricular wall thickness is normal. LV systolic function is at the lower limits of normal with ejection fraction of about 50%. Right atrium is normal. Right ventricle is normal. Aortic root dimension is normal. Mitral valve annulus is calcified. Mitral valve leaflets are sclerotic with mild mitral regurgitation. Aortic valve is a trileaflet structure with mild aortic insufficiency. Tricuspid valve shows mild tricuspid regurgitation with mild pulmonary hypertension with estimated pulmonary artery systolic pressure of 41. Pulmonary valve shows no pulmonary insufficiency. There is no pericardial effusion. IMPRESSION 1. LV function at the lower limits of normal with ejection fraction of 50%. 2. Left atrial dilation. 3. Left ventricular dilation. 4. Mitral annulus calcification with mitral sclerosis and mild mitral regurgitation. 5. Mild tricuspid regurgitation with mild pulmonary hypertension with estimated pulmonary artery systolic pressure of 41. 6. Mild aortic insufficiency. MTDD
--- NOTE | 2016-09-27 15:13 | NUR ---
Direct Current Cardioversion Cardioversion performed at bedside under Dr. Molina. Pt tolerated well. See moderated sedation intervention for details.
--- NOTE | 2016-09-27 15:34 | HPPDOC ---
SANYA GAONA 09/27/16 0856: HPI - Adult Date DATE: 09/27/16 TIME: 08:52 General Date of Admission Date of Admission: Sep 26, 2016 at 17:50 Chief Complaint: chest pain, SOA History of Present Illness Lisa is 66 year old female who has a known history of A Fib, HTN and DM who presented to the ED yesterday with c/o chest pressure and SOA. Her EKG revealed A Fib RVR, rate 109. She takes Digoxin, which her level is low at 6.6 and Coumadin which her INR is therapeutic at 2.15. She was admitted to CCU 4 for titration of Cardizem to control rate Past Medical History Past Medical History Metabolic: diabetes, hypertension Cardiac: A-fib, DENIES: CAD, CHF, [place] GI: other (diarrhea) Surgical History General: gallbladder Current Medications Home Meds Active Scripts Amlodipine Besylate (Amlodipine Besylate) 5 Mg Tablet, 5 MG PO DAILY for 30 Days , #30 TAB 11 Refills Prov:SANYA GAONA PHARMACEUTICAL SPECIALTY REPRESENTATIVE 09/28/16 Amiodarone HCl (Pacerone) 200 Mg Tablet, 200 MG PO DAILY for 30 Days, #30 TAB 11 Refills Prov:SANYA GAONA PHARMACEUTICAL SPECIALTY REPRESENTATIVE 09/28/16 Reported Medications Multivitamin (Multivitamins) 1 Each Tablet, 1 TAB PO DAILY 09/26/16 Gabapentin (Gabapentin) 600 Mg Tablet, 600 MG PO BID 09/26/16 Citalopram Hydrobromide (Citalopram HBr) 20 Mg Tablet, 20 MG PO DAILY 09/26/16 Warfarin Sodium (Warfarin Sodium) 5 Mg Tablet, 5 MG PO HS 09/26/16 Metformin HCl (Metformin HCl) 500 Mg Tablet, 500 MG PO BID 09/26/16 Discontinued Reported Medications Digoxin (Digoxin) 125 Mcg Tablet, 125 MCG PO DAILY 09/26/16 Allergies: Coded Allergies: Penicillins (Verified Allergy, Unknown, 09/26/16) hydromorphone (Verified Allergy, Unknown, NAUSEA, 09/26/16) Vaccines 3 OR 4 YEARS AGO Social History Smoking Status: Former smoker Advance Directives: Yes DPOA for Healthcare Only ([place]) Review of Systems Constitutional: REPORTS: fatigue, DENIES: chills, dizziness, fever, syncope, weakness Eyes Vision: DENIES: double vision ENMT Hearing: DENIES: tinnitus Balance: DENIES: vertigo Sinuses: NOT FOUND: rhinorrhea Mouth/Throat: DENIES: sore throat Cardiovascular DENIES: chest pain, dyspnea on exertion, murmur Rhythm/Rate: palpitations, DENIES: irregular beat Vascular: DENIES: pedal edema Pulmonary Respiratory: dyspnea, DENIES: cough, sputum GI Upper Abdomen: DENIES: nausea, vomiting Lower Abdomen: DENIES: blood in stool, diarrhea General: DENIES: dysuria Integumentary Skin: DENIES: rash, sores Neurological General: weakness, DENIES: headache, numbness, seizures, syncope All Other Systems All Other Systems: Reviewed (remainder of 10-point ROS Neg.) Physical Exam General General Nourishment: well nourished, well developed, obese, apparent age Vital Signs Vital Signs Date Time Temp Pulse Resp B/P Pulse Ox O2 Delivery O2 Flow Rate FiO2 09/27/16 08:30 144/71 09/27/16 08:15 67 22 96 Room Air 09/27/16 08:00 97.6 Height (Feet): 5 Height (Inches): 8.00 Telemetry Rhythm: Atrial Fibrillation ENMT Brief: FOUND: mucosa moist Neck Brief: NOT FOUND: JVD, carotid bruits Respiratory Brief: FOUND: clear all he, equal bilaterally, NOT FOUND: rales , wheezes Cardiovascular (brief) Cardiac Brief: NOT FOUND: click, gallop, murmur, pedal edema, regular rate, regular rhythm Abdomen (brief) Abdominal Brief: FOUND: BS normo active x4, soft Integumentary (brief) Integumentary Brief: FOUND: dry, pink, warm Neurologic RN Documented GCS Eye Opening: Verbal: Motor: Total: Psychiatric (brief) FOUND: alert, attentive, oriented Laboratory Laboratory Tests Test 09/26/16 16:48 09/26/16 22:45 09/27/16 04:48 09/27/16 10:50 White Blood Count 9.6T/MM3 8.5T/MM3 Red Blood Count 4.57M/MM3 4.17M/MM3 Hemoglobin 13.4GM/DL 12.1GM/DL Hematocrit 41.3% 39.0% Mean Corpuscular Volume 90.4UM3 93.5UM3 Mean Corpuscular Hemoglobin 29.3UUG 29.0UUG Mean Corpuscular Hemoglobin Concent 32.4GM/DL 31.0GM/DL RDW Standard Deviation 51.5FL 53.4FL Platelet Count 287T/MM3 278T/MM3 Mean Platelet Volume 9.6UM3 10.3UM3 Immature Granulocyte % (Auto) 0.2% 0.2% Neutrophils (%) (Auto) 53.4% 46.5% Lymphocytes (%) (Auto) 38.7% 42.2% Monocytes (%) (Auto) 4.9% 7.1% Eosinophils (%) (Auto) 2.4% 3.6% Basophils (%) (Auto) 0.4% 0.4% Absolute Immature Granulocyte (auto 0.02T/MM3 0.02T/MM3 Absolute Neutrophils (auto) 5.1T/MM3 3.9T/MM3 Absolute Lymphocytes (auto) 3.7T/MM3 3.6T/MM3 Absolute Monocytes (auto) 0.5T/MM3 0.6T/MM3 Absolute Eosinophils (auto) 0.2T/MM3 0.3T/MM3 Absolute Basophils (auto) 0.0T/MM3 0.0T/MM3 Prothromb Time International Ratio 2.15 Turbidity < 20 < 20 Sodium Level 145MEQ/L 142MEQ/L Potassium Level 4.6MEQ/L 4.5MEQ/L Chloride Level 107MEQ/L 107MEQ/L Carbon Dioxide Level 24MEQ/L 26MEQ/L Anion Gap 14MEQ/L 9MEQ/L Blood Urea Nitrogen 19.0MG/DL 18.0MG/DL Creatinine 1.0MG/DL 1.1MG/DL Glomerular Filtration Rate Calc 55 50 BUN/Creatinine Ratio 19RATIO 16RATIO Glucose Level 108MG/DL 102MG/DL Calculated Osmolality 282MOSM/KG 275MOSM/KG Calcium Level 10.5MG/DL 9.8MG/DL Total Bilirubin 0.50MG/DL Icterus Index < 2 < 2 Aspartate Amino Transf (AST/SGOT) 22U/L Alanine Aminotransferase (ALT/SGPT) 28U/L Alkaline Phosphatase 69U/L Troponin I 0.032ng/ml 0.042ng/ml 0.042ng/ml 0.030ng/ml [id number]-Wks-[id number]-Type Natriuretic Peptide 1880PG/ML Total Protein 7.2G/DL Albumin 3.9G/DL Globulin 3.3G/DL Albumin/Globulin Ratio 1.2RATIO Chemistry Specimen Hemolysis < 15 < 15 < 15 < 15 Digoxin Level 0.6NG/ML Magnesium Level 1.6MG/DL Thyroid Stimulating Hormone (TSH) 3.61MIU/L Laboratory Tests Test 09/26/16 16:48 09/26/16 22:45 09/27/16 04:48 White Blood Count 9.6T/MM3 Red Blood Count 4.57M/MM3 Hemoglobin 13.4GM/DL Hematocrit 41.3% Mean Corpuscular Volume 90.4UM3 Mean Corpuscular Hemoglobin 29.3UUG Mean Corpuscular Hemoglobin Concent 32.4GM/DL RDW Standard Deviation 51.5FL Platelet Count 287T/MM3 Mean Platelet Volume 9.6UM3 Immature Granulocyte % (Auto) 0.2% Neutrophils (%) (Auto) 53.4% Lymphocytes (%) (Auto) 38.7% Monocytes (%) (Auto) 4.9% Eosinophils (%) (Auto) 2.4% Basophils (%) (Auto) 0.4% Absolute Immature Granulocyte (auto 0.02T/MM3 Absolute Neutrophils (auto) 5.1T/MM3 Absolute Lymphocytes (auto) 3.7T/MM3 Absolute Monocytes (auto) 0.5T/MM3 Absolute Eosinophils (auto) 0.2T/MM3 Absolute Basophils (auto) 0.0T/MM3 Prothromb Time International Ratio 2.15 Turbidity < 20 Sodium Level 145MEQ/L Potassium Level 4.6MEQ/L Chloride Level 107MEQ/L Carbon Dioxide Level 24MEQ/L Anion Gap 14MEQ/L Blood Urea Nitrogen 19.0MG/DL Creatinine 1.0MG/DL Glomerular Filtration Rate Calc 55 BUN/Creatinine Ratio 19RATIO Glucose Level 108MG/DL Calculated Osmolality 282MOSM/KG Calcium Level 10.5MG/DL Total Bilirubin 0.50MG/DL Icterus Index < 2 Aspartate Amino Transf (AST/SGOT) 22U/L Alanine Aminotransferase (ALT/SGPT) 28U/L Alkaline Phosphatase 69U/L Troponin I 0.032ng/ml 0.042ng/ml 0.042ng/ml MU-Atg-I-Type Natriuretic Peptide 1880PG/ML Total Protein 7.2G/DL Albumin 3.9G/DL Globulin 3.3G/DL Albumin/Globulin Ratio 1.2RATIO Chemistry Specimen Hemolysis < 15 < 15 < 15 Digoxin Level 0.6NG/ML EKG AFib Radiology DATE OF EXAM: 09/26/16 ORDERING DOCTOR: VIN GREENE MD TYPE OF EXAM: CHEST 1 VIEW REASON FOR EXAM: atrial fibrillation EXAM: CHEST 1 VIEW LOCATION OF DICTATION: [place] HISTORY: ITS.REASON: atrial fibrillation COMPARISON: No prior studies available for comparison. FINDINGS: The heart is moderately enlarged. Central pulmonary vasculature is within normal limits. Breast shadowing overlies the lower lung zones. No definite consolidating opacities or pleural effusions. The osseous structures are within normal limits for the patient's age. IMPRESSION: Moderate cardiomegaly without evidence for overt congestive heart failure or pneumonia. Assessment & Plan Problems: (1) Atrial fibrillation with RVR Status: Acute Assessment & Plan: Start on IV Amiodarone, NPO for DCCV today. Will change to oral Amiodarone when IV bag runs out. (2) Essential (primary) hypertension Status: Chronic Assessment & Plan: Normotensive today (3) Diabetes mellitus Status: Chronic Qualifiers: Diabetes mellitus type: type 2 Diabetes mellitus complication status: without complication Diabetes mellitus superintendent [employer] insulin use: without half-way use Qualified Codes: E11.9 - Type 2 diabetes mellitus without complications Assessment & Plan: Continue home regimen Plan/Intensity of Service A Fib: Start on IV Amiodarone, NPO for DCCV today. Will change to oral Amiodarone when IV bag runs out. Continue to monitor on telemetry for proarrhythmic effects of Amiodarone, EKG post DCCV and in AM DVT Prophylaxis: Coumadin Code Status Full Code Hospital Course Summary Disclaimer The hospital course summary below is not to be considered part of the above Progress Note. LOUISA ALEX MD 10/03/16 1424: Past Medical History Current Medications Home Meds Active Scripts Amlodipine Besylate (Amlodipine Besylate) 5 Mg Tablet, 5 MG PO DAILY for 30 Days , #30 TAB 11 Refills Prov:SANYA GAONA APRN 09/28/16 Amiodarone HCl (Pacerone) 200 Mg Tablet, 200 MG PO DAILY for 30 Days, #30 TAB 11 Refills Prov:SANYA GAONA APRN 09/28/16 Reported Medications Multivitamin (Multivitamins) 1 Each Tablet, 1 TAB PO DAILY 09/26/16 Gabapentin (Gabapentin) 600 Mg Tablet, 600 MG PO BID 09/26/16 Citalopram Hydrobromide (Citalopram HBr) 20 Mg Tablet, 20 MG PO DAILY 09/26/16 Warfarin Sodium (Warfarin Sodium) 5 Mg Tablet, 5 MG PO HS 09/26/16 Metformin HCl (Metformin HCl) 500 Mg Tablet, 500 MG PO BID 09/26/16 Discontinued Reported Medications Digoxin (Digoxin) 125 Mcg Tablet, 125 MCG PO DAILY 09/26/16 Allergies: Coded Allergies: Penicillins (Verified Allergy, Unknown, 09/26/16) hydromorphone (Verified Allergy, Unknown, NAUSEA, 09/26/16) Assessment & Plan Plan/Intensity of Service After examining the patient I agree with the above assessment. I am involved in the formulation of the patient's plan of care. SANYA GAONA APRN Sep 27, 2016 08:56 LOUISA ALEX MD Oct 03, 2016 14:24
[2016-09-27] MEDS ORDERED: MIDAZOLAM 2mg/2ml INJECTION IV ONE (16:15)
[2016-09-27] MEDS ORDERED: FENTANYL 100mcg/2ml INJECTION IV ONE (16:15)
[2016-09-27] MEDS ORDERED: SALINE FLUSH 10ml SYRINGE IVF ONE (16:15)
[2016-09-27 16:17] LABS: INR 1.95 (0.76-1.04); PROTHROMBIN TIME 21.3 SEC (9.31-12.49)
[2016-09-27] MEDS ORDERED: WARFARIN 5 MG TABLET PO ONE (16:30)
--- NOTE | 2016-09-27 16:35 | NUR ---
COUMADIN CONSULT (Initial): Dx: ATRIAL FIB Baseline INR = 1.95. Will give Warfarin 5mg today. Ms Jose has been started on amiodarone, which can affect warfarin dosing significantly. Will continue to monitor and make adjustments accordingly. Thank you.
[2016-09-27] MEDS ORDERED: METFORMIN 500 MG TABLET PO SCH (17:30)
[2016-09-27] MEDS: METFORMIN 500 MG TABLET PO SCH (17:31)
--- NOTE | 2016-09-27 18:50 | NUR ---
ARRIVED PT ARRIVED TO ROOM 126 VIA WHEELCHAIR FROM CCU. PT SETTLED INTO BED AT THIS TIME.
[2016-09-27] MEDS ORDERED: PNEUMOCOCCAL 13 VACCINE 0.5 ML SYRINGE IM ONE (19:00)
[2016-09-27] MEDS ORDERED: INFLUENZA VAC High Dose 2016-17 (Fluzone HD*)(>=65yo) 0.5ml IM ONE (19:00)
[2016-09-27] MEDS: GABAPENTIN 600 MG TABLET PO SCH (20:32)
--- NOTE | 2016-09-27 20:32 | DC CARDIOF ---
DC CARDIOVERSION DATE OF PROCEDURE September 27, 2016 The patient is a 66-year-old lady with history of atrial fibrillation on chronic anticoagulation who presented with symptomatic recurrence of atrial fibrillation with RVR and was referred for DC cardioversion. Informed consent was obtained after explaining the procedure and the potential risks to the patient who agreed to proceed with the procedure. PROCEDURE DC cardioversion. Conscious sedation was performed using Versed and fentanyl. Anterior-posterior Zoll pads were applied. 360 joules of energy was delivered in synchronized manner and patient converted from atrial fibrillation to sinus rhythm with PVCs. The patient tolerated the procedure well with no complications. IMPRESSION Successful DC cardioversion of atrial fibrillation to sinus rhythm. PLAN Will keep her on chronic anticoagulation and start her on antiarrhythmics to maintain sinus. SAMD
--- NOTE | 2016-09-27 23:57 | NUR ---
Chart Check 24 hour chart check completed
[2016-09-28] VITALS: PULSE 63; RESP 17
[2016-09-28 01:03] VITALS: BP 174/93; PULSE 59; RESP 17; TEMP 98; O2SAT 100
[2016-09-28 05:17] LABS: INR 2.13 (0.76-1.04); PROTHROMBIN TIME 23.2 SEC (9.31-12.49)
--- NOTE | 2016-09-28 06:30 | NUR ---
STATUS PATIENT ALERT AND ORIENTEDX3. PATIENT SLEPT WELL THROUGH NIGHT. SOA UPON ACTIVITY.C/O CHEST DISCOMFORT.DENIES CHEST PAIN. 2L O2 VIA NC DURING SLEEPING. HEART RATED 50S-70S. BP 170S/80S-90S.DENIES N/V.AMIODARONE 16GETTS/HR RUNNING THROUGH IV AT RT HAND.PATIENT C/O FELT WARM. FAN USED AT THIS TIME. PATIENT USED BEDSIDE COMMODE AND HAD ADEQUATE URINARY OUTPUT. ON BED ALARM. CALL LIGHT WITHIN REACH. CONTINUE TO MONITOR. Addendum: 09/28/16 at 0725 by AUGIE COLINDRES RN AMIODARONE 16MLS/HR RUNNING THROUGH IVL AT RT HAND.
[2016-09-28 07:46] VITALS: PULSE 67
[2016-09-28 07:47] VITALS: BP 176/87; PULSE 67; RESP 22; TEMP 98.6; O2SAT 100
[2016-09-28] MEDS ORDERED: AMIODARONE 200 MG TABLET PO SCH (09:00)
[2016-09-28] MEDS ORDERED: MULTIVITAMIN + MINERAL TABLET PO SCH (09:00)
[2016-09-28] MEDS: GABAPENTIN 600 MG TABLET PO SCH ×2 (09:22→20:06)
[2016-09-28] MEDS: METFORMIN 500 MG TABLET PO SCH ×2 (09:22→18:00)
--- NOTE | 2016-09-28 10:04 | NUR ---
COUMADIN CONSULT: COUMADIN CONSULT (Initial): S: 66 yo female admitted with Atrial Fibrillation with RVR. Patient also has diagnoses of HTN and DM II (sccording to the medications she is taking daily at home. O: Date INR Dose 09/27 1.95 5 mg 09/28 2.13 Plan 5 mg A/P: The INR is therapeutic. I ordered Warfarin 5mg today. The patient has been started on amiodarone, which can affect warfarin dosing significantly. The Pharmacy will continue to monitor and make adjustments accordingly. Thank you for the Warfarin Dosing Protocol, Macario Dominguez RPh.
[2016-09-28] MEDS ORDERED: WARFARIN 5 MG TABLET PO SCH (12:00)
[2016-09-28] MEDS ORDERED: AMLODIPINE 5 MG TABLET PO SCH (12:15)
[2016-09-28 12:18] LABS: ANION GAP 8 MEQ/L (5-15); BUN/CREATININE RATIO 16 RATIO (6-26); CALCIUM 10.2 MG/DL (8.4-10.2); CHLORIDE 105 MEQ/L (98-107); CO2 - CARBON DIOXIDE 28 MEQ/L (22-30); CREATININE 1.2 MG/DL (0.7-1.2); GLOMERULAR FILTRATION RATE 45; GLUCOSE 106 MG/DL (65-110); POTASSIUM 4.6 MEQ/L (3.6-5); SODIUM 141 MEQ/L (134-144)
[2016-09-28] MEDS ORDERED: AMLO5TAB2 PO (15:48)
[2016-09-28] MEDS ORDERED: AMIO200T7 PO (15:48)
[2016-09-28 16:00] VITALS: BP 187/108; PULSE 75; RESP 20; TEMP 98; O2SAT 94
[2016-09-28 20:00] VITALS: BP 143/77; PULSE 67; RESP 20; TEMP 97.2; O2SAT 97
--- NOTE | 2016-09-28 20:20 | NUR ---
DISCHARGE DISCHARGE INSTRUCTIONS REVIEW,HARD COPY WAS GIVEN.ACTIVITIES,MEDICATIONS ,SIGNS/SYMPTOMS TO REPORT TO DR URRUTIA. PATIENT VERBALIZED UNDERSTANDING . FOLLOW UP APPOINTMENT PREVIOUSLY SCHEDULED.PATIENT IN STABLE CONDITIONS,DENIES SOA/DIFFICULTY BREATHING,CP,N/V. PATIENT WHEELS TO ED ENTRANCE WITH NURSE AND BELONGINGS.PATIENT TRANSPORTED VIA SON'S VEHICLE.
--- NOTE | 2016-09-28 20:25 | DSPDOC ---
SANYA GAONA TIMBER KILLER 09/28/16 2015: General Date Date DATE: 09/28/16 TIME: 20:11 Attending Physician Louisa Molina MD Admitting Physician Louisa Molina MD Consulting Physician Admitting Diagnosis atrial fibrillation with RVR Discharge Diagnosis atrial fibrillation Laboratory Laboratory Tests Test 09/26/16 22:45 09/27/16 04:48 09/27/16 10:49 09/27/16 10:50 Troponin I 0.042ng/ml 0.042ng/ml 0.030ng/ml Chemistry Specimen Hemolysis < 15 < 15 < 15 White Blood Count 8.5T/MM3 Red Blood Count 4.17M/MM3 Hemoglobin 12.1GM/DL Hematocrit 39.0% Mean Corpuscular Volume 93.5UM3 Mean Corpuscular Hemoglobin 29.0UUG Mean Corpuscular Hemoglobin Concent 31.0GM/DL RDW Standard Deviation 53.4FL Platelet Count 278T/MM3 Mean Platelet Volume 10.3UM3 Immature Granulocyte % (Auto) 0.2% Neutrophils (%) (Auto) 46.5% Lymphocytes (%) (Auto) 42.2% Monocytes (%) (Auto) 7.1% Eosinophils (%) (Auto) 3.6% Basophils (%) (Auto) 0.4% Absolute Immature Granulocyte (auto 0.02T/MM3 Absolute Neutrophils (auto) 3.9T/MM3 Absolute Lymphocytes (auto) 3.6T/MM3 Absolute Monocytes (auto) 0.6T/MM3 Absolute Eosinophils (auto) 0.3T/MM3 Absolute Basophils (auto) 0.0T/MM3 Turbidity < 20 Sodium Level 142MEQ/L Potassium Level 4.5MEQ/L Chloride Level 107MEQ/L Carbon Dioxide Level 26MEQ/L Anion Gap 9MEQ/L Blood Urea Nitrogen 18.0MG/DL Creatinine 1.1MG/DL Glomerular Filtration Rate Calc 50 BUN/Creatinine Ratio 16RATIO Glucose Level 102MG/DL Calculated Osmolality 275MOSM/KG Calcium Level 9.8MG/DL Magnesium Level 1.6MG/DL Icterus Index < 2 Thyroid Stimulating Hormone (TSH) 3.61MIU/L Prothromb Time International Ratio 1.95 Test 09/28/16 04:40 09/28/16 04:48 Prothromb Time International Ratio 2.13 Turbidity < 20 Sodium Level 141MEQ/L Potassium Level 4.6MEQ/L Chloride Level 105MEQ/L Carbon Dioxide Level 28MEQ/L Anion Gap 8MEQ/L Blood Urea Nitrogen 19.0MG/DL Creatinine 1.2MG/DL Glomerular Filtration Rate Calc 45 BUN/Creatinine Ratio 16RATIO Glucose Level 106MG/DL Calculated Osmolality 273MOSM/KG Calcium Level 10.2MG/DL Icterus Index < 2 Chemistry Specimen Hemolysis < 15 Laboratory Tests Test 09/27/16 10:49 09/27/16 10:50 09/28/16 04:40 09/28/16 04:48 Prothromb Time International Ratio 1.95 (0.76-1.04) 2.13 (0.76-1.04) Troponin I 0.030ng/ml (0-0.12) Chemistry Specimen Hemolysis < 15 (0-25) < 15 (0-25) Turbidity < 20 (0-20) Sodium Level 141MEQ/L (134-144) Potassium Level 4.6MEQ/L (3.6-5) Chloride Level 105MEQ/L (98-107) Carbon Dioxide Level 28MEQ/L (22-30) Anion Gap 8MEQ/L (5-15) Blood Urea Nitrogen 19.0MG/DL (7-17) Creatinine 1.2MG/DL (0.7-1.2) Glomerular Filtration Rate Calc 45 BUN/Creatinine Ratio 16RATIO (6-26) Glucose Level 106MG/DL (65-110) Calculated Osmolality 273MOSM/KG (261-280) Calcium Level 10.2MG/DL (8.4-10.2) Icterus Index < 2 (0-7) History of Present Illness Lisa is 66 year old female who has a known history of A Fib, HTN and DM who presented to the ED yesterday with c/o chest pressure and SOA. Her EKG revealed A Fib RVR, rate 109. She takes Digoxin, which her level is low at 6.6 and Coumadin which her INR is therapeutic at 2.15. She was admitted to CCU 4 for titration of Cardizem to control rate Objective Vital Signs Vital signs Vital Signs 09/28/16 09/28/16 16:00 20:00 Temp 98.0 97.2 Pulse 75 67 Resp 20 20 B/P 187/108 143/77 Pulse Ox 94 97 O2 Delivery Room Air Room Air Telemetry Rhythm: Atrial Fibrillation Height (Feet): 5 Height (Inches): 8.00 Weight (Kilograms): 117.000 General Alert, Orientated x 3, Cooperative, No Acute Distress ENMT (Brief) mucosa moist Neck (Brief) NOT FOUND: JVD, carotid bruits Respiratory (Brief) clear all he, equal bilaterally, NOT FOUND: rales, wheezes Cardiovascular (Brief) regular rate, regular rhythm, NOT FOUND: click, gallop, murmur, pedal edema, rub Abdomen (Brief) BS normo active x4, soft Integumentary (Brief) dry, pink, warm Psychiatric (Brief) alert, attentive, oriented Laboratory Laboratory Laboratory Tests 09/28/16 04:48 Medications Current Medications Nitroglycerin 0.4 mg 0.4 mg Q5MIN PRN SL CHEST PAIN Last administered on 17:23; Start 09/26/16 at 16:45 Sodium Chloride (Normal Saline IV) 1,000 ml @ 100 mls/hr Q10H ONCE IV Last administered on 09/26/16 17:02; Start 09/26/16 at 16:45; Stop 09/27/16 at 02:44 ; Status DC Diltiazem HCl 10 mg 10 mg O ONCE IV Last administered on 09/26/16 17:00; Start 09/26/16 at 16:45; Stop 09/26/16 at 16:48; Status DC Diltiazem HCl/ Sodium Chloride (Cardizem 125 Mg/ 25 ml Injection/ NS) 125 ml @ 5 mls/hr Q24H IV Last administered on 09/26/16 17:22; Start 09/26/16 at 16:45 ; Stop 09/27/16 at 16:42; Status DC Miscellaneous Medication (May use PRN orders) PRN PRN MC ; Start 09/26/16 at 18:00 Influenza Virus Vaccine (FLUZONE HIGH-DOSE Vac.) 0.5 ml O ONCE IM Last administered on 09/27/16 11:36; Start 09/27/16 at 19:00; Stop 09/27/16 at 19:01; Status DC Pneumoccal 13-Valent Conj Vacc (Prevnar 13) 0.5 ml O ONCE IM Last administered on 09/27/16 11:35; Start 09/27/16 at 19:00; Stop 09/27/16 at 19:01 ; Status DC Acetaminophen (Tylenol Regular Strength) 650 mg Q5H PRN PO DISCOMFORT; Start at 22:15 Ondansetron HCl (Zofran) 4 mg Q6H PRN IM NAUSEA &/OR VOMITING; Start 09/26/16 at 22:15; Stop 09/26/16 at 23:44; Status DC Morphine Sulfate (Morphine) 2 mg Q4H PRN IV PAIN Last administered on 23:53; Start 09/26/16 at 22:15 Ondansetron HCl 4 mg 4 mg Q6H PRN IV NAUSEA &/OR VOMITING Last administered on 09/26/16 23:46; Start 09/27/16 at 04:15 Amiodarone HCl 150 mg/Sodium Chloride 53 ml @ 300 mls/hr Q11M ONCE IV Last administered on 09/27/16 11:56; Start 09/27/16 at 10:59; Stop 09/27/16 at 11:45 ; Status DC Amiodarone HCl 900 mg/Sodium Chloride 518 ml @ 34.53 mls/ hr Q15H1M IV Last administered on 09/27/16 12:13; Start 09/27/16 at 10:59; Stop 09/27/16 at 16:46 ; Status DC Amiodarone HCl/ Sodium Chloride (Cordarone/NS) 518 ml @ 16.7 mls/hr Q24H IV ; Start 09/27/16 at 17:00; Stop 09/28/16 at 12:00; Status DC Warfarin Sodium (Coumadin Protocol) NOTE MC ; Start 09/27/16 at 16:15 Fentanyl (Fentanyl) 50 mcg STK-MED ONCE IV ; Start 09/27/16 at 16:15; Stop 09/27 at 16:16; Status DC Sodium Chloride (Iv Flush) 10 ml STK-MED ONCE IVF ; Start 09/27/16 at 16:15; Stop 09/27/16 at 16:16; Status DC Midazolam HCl (Versed) 2 mg STK-MED ONCE IV ; Start 09/27/16 at 16:15; Stop 3/ 14/17 at 16:16; Status DC Citalopram Hydrobromide (Celexa) 20 mg DAILY PO Last administered on 09/28/16 09:21; Start 09/28/16 at 09:00 Gabapentin (Neurontin) 600 mg BID PO Last administered on 09/28/16 20:06; Start 09/27/16 at 21:00 Metformin HCl (Glucophage) 500 mg BIDWM PO ; Start 09/27/16 at 17:30; Status Cancel Multivitamins/ Minerals (Therapeutic - M) 1 tab DAILY PO Last administered on 09:21; Start 09/28/16 at 09:00 Amiodarone HCl (Pacerone) 200 mg DAILY PO Last administered on 09/28/16 09:21 ; Start 09/28/16 at 09:00 Influenza Virus Vaccine (Flu Vaccine Admin Charge) 1 each STK-MED ONCE INJ ; Start 09/27/16 at 11:36; Stop 09/28/16 at 07:55; Status DC Pneumococcal Polyvalent Vaccine (Pneumococcal Admin. Charge) 1 each STK-MED ONCE INJ ; Start 09/27/16 at 11:36; Stop 09/28/16 at 07:55; Status DC Warfarin Sodium (COUMADIN 5 mg) 5 mg NOON PO Last administered on 09/28/16 12: 28; Start 09/28/16 at 12:00; Stop 09/28/16 at 12:30; Status DC Amlodipine Besylate (Norvasc) 5 mg DAILY PO Last administered on 09/28/16 12: 28; Start 09/28/16 at 12:15 Hospital Course Lisa was admitted to CCU on Cardizem drip to control rate and Amiodarone for antiarrhythmic as INR is therapeutic. She underwent successful direct current cardioversion and finished remaining IV amiodarone before being transferred to oral Amiodarone. Amlodipine was added for suboptimal control of BP. She was discharged with RX for Amiodarone and Amlodipine, with instructions to take and record BP 2-3X/ week and bring diary to follow up visit on 10/11 at 3: 20 pm. Problems: (1) Atrial fibrillation with RVR Status: Acute (2) Essential (primary) hypertension Status: Chronic (3) Diabetes mellitus Status: Chronic Code Status Full Code Home Meds Active Scripts Amlodipine Besylate (Amlodipine Besylate) 5 Mg Tablet, 5 MG PO DAILY for 30 Days , #30 TAB 11 Refills Prov:SANYA GAONA TIMBER KILLER 09/28/16 Amiodarone HCl (Pacerone) 200 Mg Tablet, 200 MG PO DAILY for 30 Days, #30 TAB 11 Refills Prov:SANYA GAONA TIMBER KILLER 09/28/16 Reported Medications Multivitamin (Multivitamins) 1 Each Tablet, 1 TAB PO DAILY 09/26/16 Gabapentin (Gabapentin) 600 Mg Tablet, 600 MG PO BID 09/26/16 Citalopram Hydrobromide (Citalopram HBr) 20 Mg Tablet, 20 MG PO DAILY 09/26/16 Warfarin Sodium (Warfarin Sodium) 5 Mg Tablet, 5 MG PO HS 09/26/16 Metformin HCl (Metformin HCl) 500 Mg Tablet, 500 MG PO BID 09/26/16 Discontinued Reported Medications Digoxin (Digoxin) 125 Mcg Tablet, 125 MCG PO DAILY 09/26/16 Discharge Disposition She was discharged in good and stable condition to home in the care of herself with RX for Amiodarone and Amlodipine, with instructions to take and record BP 2 -3X/ week and bring diary to follow up visit on 10/11 at 3:20 pm. LOUISA MOLINA MD 10/05/16 1143: Hospital Course Home Meds Active Scripts Amlodipine Besylate (Amlodipine Besylate) 5 Mg Tablet, 5 MG PO DAILY for 30 Days , #30 TAB 11 Refills Prov:SANYA GAONA TIMBER KILLER 09/28/16 Amiodarone HCl (Pacerone) 200 Mg Tablet, 200 MG PO DAILY for 30 Days, #30 TAB 11 Refills Prov:SANYA GAONA TIMBER KILLER 09/28/16 Reported Medications Multivitamin (Multivitamins) 1 Each Tablet, 1 TAB PO DAILY 09/26/16 Gabapentin (Gabapentin) 600 Mg Tablet, 600 MG PO BID 09/26/16 Citalopram Hydrobromide (Citalopram HBr) 20 Mg Tablet, 20 MG PO DAILY 09/26/16 Warfarin Sodium (Warfarin Sodium) 5 Mg Tablet, 5 MG PO HS 09/26/16 Metformin HCl (Metformin HCl) 500 Mg Tablet, 500 MG PO BID 09/26/16 Discontinued Reported Medications Digoxin (Digoxin) 125 Mcg Tablet, 125 MCG PO DAILY 09/26/16 Discharge Disposition After examining the patient I agree with the above assessment. I am involved in the formulation of the patient's plan of care. SANYA GAONA APRN Sep 28, 2016 20:15 LOUISA MOLINA MD Oct 05, 2016 11:43
== END 2016-09-28 20:15 | disposition home or self-care (01) | DRG 310 ==
LOC: ED 16:28 → OBSVTOIN 17:50 → EDHOLD 17:50 → INTOOBSV 17:50 → CCU 18:03 → OBSVTOIN 09-27 14:40 → SRG 09-27 19:00
PROVIDERS: ADMIT Internal Medicine Cardiovascular Disease; ATTEND Internal Medicine Cardiovascular Disease
PROC: B24BZZZ Ultrasonography of Heart with Aorta (ICD-10-PCS; principal; 2016-09-27)
PROC: 3E0234Z Introduction of Serum, Toxoid and Vaccine into Muscle, Percutaneous Approach (ICD-10-PCS; 2016-09-27)
PROC: 3E0234Z Introduction of Serum, Toxoid and Vaccine into Muscle, Percutaneous Approach (ICD-10-PCS; 2016-09-27)
DX: I48.91 Unspecified atrial fibrillation (principal); E11.9 Type 2 diabetes mellitus without complications; I10 Essential (primary) hypertension; Z79.84 Long term (current) use of oral hypoglycemic drugs; Z79.899 Other long term (current) drug therapy; Z79.01 Long term (current) use of anticoagulants; Z87.891 Personal history of nicotine dependence; Z23 Encounter for immunization
CPT/HCPCS: 36415; 80048; 80053; 80162; 83735; 83880; 84443; 84484; 85025; 85610; 90662; 92960; 93005; 93306; 96365; 96372; 96375; 99218